=== PATIENT | female | born 1955 | race African-American/Black ===

== ENCOUNTER 2017-07-18 17:11 | Inpatient (IN) | END 2017-07-22 18:22 | disposition home or self-care (01) | DRG 291 ==

== ENCOUNTER 2018-06-13 03:42 | Inpatient (IN) | payer OTHER ==
[~2018-06-13] VITALS: Ht 167.6 cm; Wt 87.3 kg
[2018-06-13] VITALS (10 sets, daily range): BP systolic 123–155; BP diastolic 58–73; PULSE 49–70; RESP 18–20; Ht 167.6 cm; Wt 87.3 kg
[~2018-06-13 03:42] MED LIST: AMLO-147 PO; APIX2.5T PO; CLON-379 PO; DICL100G37 TOP; ERGO500014 PO; FURO-109 PO; GABA300C16 PO; HYDR-3671 PO; HYDR-3720 PO; ISOS60TA PO; LISI-471 PO; METO2.5T PO
[2018-06-13] MEDS ORDERED: ALBUTEROL/IPRATROPIUM (NEB) 3 ML AMP HHN PRN (06:30)
[2018-06-13] MEDS ORDERED: ONDANSETRON 4 MG INJ IV PRN (06:30)
[2018-06-13] MEDS ORDERED: BISACODYL (EC) 5 MG TAB PO PRN (06:30)
[2018-06-13] MEDS ORDERED: ACETAMINOPHEN 325 MG TAB PO PRN (06:30)
[2018-06-13] MEDS ORDERED: FUROSEMIDE 20 MG TAB PO SCH (07:00)
[2018-06-13] MEDS: LISINOPRIL 20 MG TAB PO SCH ×2 (09:11→20:03)
[2018-06-13] MEDS: GABAPENTIN 300 MG CAP PO SCH ×2 (09:11→20:02)
[2018-06-13] MEDS: AMLODIPINE 5 MG TAB PO SCH (09:12)
[2018-06-13] MEDS: APIXABAN 5 MG TABLET PO SCH ×2 (09:12→20:03)
[2018-06-13] MEDS: PANTOPRAZOLE (EC) 40 MG TAB PO SCH (09:17)
--- NOTE | 2018-06-13 13:06 | QN ---
Documentation Comment seen and examined ZOFIA GARDNER MD Jun 13, 2018 13:06
--- NOTE | 2018-06-13 13:37 | HP ---
DATE OF ADMISSION: 06/13/2018 REASON FOR ADMISSION: Transfer from [facility] due to shortness of breath and chest pain. HISTORY OF PRESENTING ILLNESS: This is a 62-year-old woman with a past medical history of CHF, hyper tension, hyperlipidemia, COPD, diastolic dysfunction grade 3, presented to [facility] on secondary to shortness of breath and chest pain for past 2 days. According to the patient, s he has not been taking any diuretics at home. The patient said that she had history of chronic right leg DVT and takes Eliquis at home. The patient has been having shortness of breath and cough for pa st 2 days. On and off, she gets intermittently bilateral lower extremity swelling. The patient went to [facility]. There, labs showed sodium of 142, potassium 3.5, chloride 103, bicarbonate 28, BUN of 13, creatinine is 1.02. LFTs within normal limit. White count was 6.4, hemoglobin 11.9 a nd platelet count 287. The patient had chest x-ray that showed pneumonia. The patient was started o n Rocephin and azithromycin, was given morphine and Zofran and was transferred to [facility] due to insurance reasons. PAST MEDICAL HISTORY: 1. COPD. 2. Hypertension. 3. Hyperlipidemia. 4. CHF. ALLERGIES: NONE. PAST SURGICAL HISTORY: Tubal ligation. MEDICATIONS TAKING AT HOME: 1. Amlodipine. 5 2. Aspirin 81. 3. Atorvastatin 20. 4. Clonidine. 5. Unsure about Lasix. 6. Gabapentin. 7. Hydralazine 25 b.i.d. 8. [place]on. 9. Lisinopril. 10. Prilosec. SOCIAL HISTORY: Denies any history of smoking, alcohol. Denies any recreational drug use. Currentl y lives at home with family. FAMILY HISTORY: Noncontributory. REVIEW OF SYSTEMS: CONSTITUTIONAL: The patient denied any fevers, chills, weight loss. HEENT: Some headache or blurry vision. HEART: The patient complained of chest pain. RESPIRATORY: Positive for shortness of breath. Complains of some cough. GASTROINTESTINAL: Denies any abdominal pain, any vomiting, diarrhea. GENITOURINARY: Denies any dysuria, polyuria, hematuria. NEUROLOGICAL: Denies any weakness. PHYSICAL EXAMINATION: VITAL SIGNS: Currently, blood pressure 134/86, the patient is afebrile, heart rate is 62, respiratio n is 20. GENERAL: The patient is awake, alert, oriented, does not appear to in any acute distress. HEENT: Pupils are equal, round, reactive to light. NECK: Supple. No JVD. HEART: Regular rate and rhythm. LUNGS: Decreased breath sounds bilaterally. ABDOMEN: Soft, nontender, nondistended, positive normoactive bowel sounds. EXTREMITIES: Some trace edema. NEUROLOGIC: Nonfocal. LABORATORY DATA: Sodium 144, potassium 4.4, chloride 102, bicarbonate 33, BUN of 13, creatinine 1.02 . White count 6.0, hemoglobin 11.5, platelet count 288. DIAGNOSTIC DATA: Chest x-ray there at an outside hospital shows pneumonia. ASSESSMENT AND PLAN: This is a 62-year-old female who presented with: 1. Shortness of breath likely secondary to pneumonia. We cannot rule out underlying congestive hear t failure. 2. Hypertension. 3. Hyperlipidemia. 4. History of deep venous thrombosis of the leg. 5. History of chronic obstructive pulmonary disease. 6. History of congestive heart failure. PLAN: At this period of time, the patient is admitted to [facility]. We will continue the patient on Lasi x as the patient was started on Zosyn. We will send for sputum cultures. We will repeat the chest x -ray. We will get serial troponins. Cardiology consultation. Rest of the treatment will depend upo n the patient's hospitalization course. Dictated By: ZOFIA KASPER/WALESKA Conf#: [id number] DID#: [id number] CC: DIMITRIOS BENSON MD;*[facility]*
[2018-06-13] MEDS: PIPER-TAZO 3.375 GM IV (PMX) 100 ML IVPB SCH ×2 (14:04→21:04)
[2018-06-13] MEDS: SOD CHLORIDE 0.9% 1,000 ML IV SCH (14:05)
--- NOTE | 2018-06-13 15:24 | CONS ---
Consultation Date/Type/Reason Admit Date/Time Jun 13, 2018 at 05:14 Type of Consult Cardiology Date/Time of Note DATE: 06/13/18 TIME: 15:24 Hx of Present Illness R/o PR - full note dictated # [id number] Past Medical History Home Meds Active Scripts Apixaban* (Eliquis*) 2.5 Mg Tablet, 2.5 MG PO BID for 30 Days, TAB Prov:SPRING BLACK 07/22/17 Hydralazine Hcl* (Hydralazine Hcl*) 25 Mg Tab, 25 MG PO Q8 for 30 Days, TAB Prov:SPRING BLACK 07/22/17 Reported Medications Furosemide* (Lasix*) 40 Mg Tablet, 40 MG PO DAILY, TAB 02/08/14 Lisinopril* (Lisinopril*) 20 Mg Tablet, 20 MG PO BID, TAB 02/08/14 Ergocalciferol* (Drisdol* (Vitamin D2)) 50,000 Unit Capsule, 54080 UNIT PO Q7D, CAP 02/08/14 Diclofenac Sodium* (Voltaren* Gel) 1% -100 Gm Gel, 1 APPLIC TOP TID PRN for PAIN, TUB 02/08/14 Hydrocodone Bit-Acetaminophen* ([place]*) 7.5-325 Tablet, 1 TAB PO Q12 PRN for PAIN, TAB 02/08/14 Hydralazine Hcl* (Hydralazine Hcl*) 25 Mg Tab, 25 MG PO BID, TAB 02/08/14 Clonidine Hcl* (Clonidine Hcl*) 0.1 Mg Tab, 0.1 MG PO BID, TAB 02/08/14 Isosorbide Mononitrate* (Isosorbide Mononitrate*) 60 Mg Tab.er.24h, 30 MG PO DAILY, TAB 02/08/14 Metolazone* (Metolazone*) 2.5 Mg Tablet, 2.5 MG PO EVERY THIRD DAY PRN for NEEDED, TAB 02/08/14 Amlodipine Besylate* (Amlodipine Besylate*) 10 Mg Tablet, 10 MG PO DAILY, TAB 02/08/14 Gabapentin* (Gabapentin*) 300 Mg Capsule, 300 MG PO BID, CAP 02/08/14 Medications Current Medications Amlodipine Besylate (Norvasc) 5 mg DAILY PO Last administered on 06/13/18 09:12; Admin Dose 5 MG; Start 06/13/18 at 09:00 Apixaban (Eliquis) 2.5 mg BID PO Last administered on 06/13/18 09:12; Admin Dose 2.5 MG; Start 06/13/18 at 09:00 Clonidine (Catapres) 0.2 mg DAILY PO Last administered on 06/13/18 09:11; Admin Dose 0.2 MG; Start 06/13/18 at 09:00 Gabapentin (Neurontin) 300 mg BID PO Last administered on 06/13/18 09:11; Admin Dose 300 MG; Start 06/13/18 at 09:00 Hydralazine HCl (Apresoline) 25 mg BID PO Last administered on 06/13/18 09:11; Admin Dose 25 MG; Start 06/13/18 at 09:00 Acetaminophen/ Hydrocodone Bitart ([place] (10/325)) 1 tab Q6H PRN PO MODERATE PAIN LEVEL 4-6; Start 06/13/18 at 06:30 Lisinopril (Zestril) 20 mg BID PO Last administered on 06/13/18 09:11; Admin Dose 20 MG; Start 06/13/18 at 09:00 Pantoprazole (Protonix Tab) 40 mg DAILY@06 PO Last administered on 06/13/18 09:17; Admin Dose 40 MG; Start 06/13/18 at 08:00 Piperacillin Sod/ Tazobactam Sod 100 ml @ 200 mls/hr Q8 IVPB Last administered on 06/13/18 14:04; Admin Dose 200 MLS/HR; Start 06/13/18 at 14:00 Bisacodyl (Dulcolax) 10 mg BID PRN PO CONSTIPATION; Start 06/13/18 at 06:30 Acetaminophen (Tylenol Tab) 650 mg Q6H PRN PO MILD PAIN(1-3)OR ELEVATED TEMP; Start 06/13/18 at 06:30 Ondansetron HCl (Zofran Inj) 4 mg Q6H PRN IV NAUSEA AND/OR VOMITING; Start 06/13/18 at 06:30 Sodium Chloride 1,000 ml @ 20 mls/hr Q24H IV Last administered on 06/13/18 14:05; Admin Dose 20 MLS/HR; Start 06/13/18 at 06:30 Albuterol/ Ipratropium (Duoneb) 3 ml Q6H RESP THERAPY PRN HHN SHORTNESS OF BREATH; Start 06/13/18 at 06:30 Furosemide (Lasix) 20 mg DAILY IV ; Start 06/14/18 at 09:00 Allergies: Coded Allergies: No Known Allergy (Unverified , 07/21/17) Social History Smoking Status: Never smoker Exam/Review of Systems Vital Signs Vitals Vital Signs Date Temp Pulse Resp B/P (MAP) Pulse Ox O2 O2 Flow FiO2 Time Delivery Rate 06/13/18 70 12:01 06/13/18 97.8 20 134/63 94 Nasal 11:26 (86) Cannula 06/13/18 10.0 06:59 Labs Result Diagram: 06/13/18 1005 06/13/18 1005 Results 24hrs Laboratory Tests Test 06/13/18 10:05 White Blood Count 6.0 Red Blood Count 4.76 # Hemoglobin 11.5 L Hematocrit 39.3 Mean Corpuscular Volume 82.6 Mean Corpuscular Hemoglobin 24.2 #L Mean Corpuscular Hemoglobin Concent 29.3 L Red Cell Distribution Width 17.0 #H Platelet Count 288 Mean Platelet Volume 9.7 Immature Granulocytes % 0.800 H Neutrophils % 69.5 Lymphocytes % 16.1 Monocytes % 11.5 H Eosinophils % 1.8 Basophils % 0.3 Nucleated Red Blood Cells % 1.3 H Immature Granulocytes # 0.050 H Neutrophils # 4.2 Lymphocytes # 1.0 Monocytes # 0.7 Eosinophils # 0.1 Basophils # 0.0 Nucleated Red Blood Cells # 0.1 H Sodium Level 144 Potassium Level 4.4 Chloride Level 102 Carbon Dioxide Level 33 H Anion Gap 9 Blood Urea Nitrogen 13 Creatinine 1.02 H Est Glomerular Filtrat Rate mL/min > 60 Glucose Level 111 Calcium Level 8.6 Total Bilirubin 0.3 Direct Bilirubin 0.00 Indirect Bilirubin 0.3 Aspartate Amino Transf (AST/SGOT) 39 Alanine Aminotransferase (ALT/SGPT) 19 Alkaline Phosphatase 97 Total Protein 6.9 Albumin 3.5 Globulin 3.40 H Albumin/Globulin Ratio 1.02 Medications Medications Current Medications Amlodipine Besylate (Norvasc) 5 mg DAILY PO Last administered on 06/13/18at 09:12; Admin Dose 5 MG; Start 06/13/18 at 09:00 Apixaban (Eliquis) 2.5 mg BID PO Last administered on 06/13/18 09:12; Admin Dose 2.5 MG; Start 06/13/18 at 09:00 Clonidine (Catapres) 0.2 mg DAILY PO Last administered on 06/13/18 09:11; Admin Dose 0.2 MG; Start 06/13/18 at 09:00 Gabapentin (Neurontin) 300 mg BID PO Last administered on 06/13/18 09:11; Admin Dose 300 MG; Start 06/13/18 at 09:00 Hydralazine HCl (Apresoline) 25 mg BID PO Last administered on 06/13/18 09:11; Admin Dose 25 MG; Start 06/13/18 at 09:00 Acetaminophen/ Hydrocodone Bitart ([place] (10/325)) 1 tab Q6H PRN PO MODERATE PAIN LEVEL 4-6; Start 06/13/18 at 06:30 Lisinopril (Zestril) 20 mg BID PO Last administered on 06/13/18 09:11; Admin Dose 20 MG; Start 06/13/18 at 09:00 Pantoprazole (Protonix Tab) 40 mg DAILY@06 PO Last administered on 06/13/18 09:17; Admin Dose 40 MG; Start 06/13/18 at 08:00 Piperacillin Sod/ Tazobactam Sod 100 ml @ 200 mls/hr Q8 IVPB Last administered on 06/13/18 14:04; Admin Dose 200 MLS/HR; Start 06/13/18 at 14:00 Bisacodyl (Dulcolax) 10 mg BID PRN PO CONSTIPATION; Start 06/13/18 at 06:30 Acetaminophen (Tylenol Tab) 650 mg Q6H PRN PO MILD PAIN(1-3)OR ELEVATED TEMP; Start 06/13/18 at 06:30 Ondansetron HCl (Zofran Inj) 4 mg Q6H PRN IV NAUSEA AND/OR VOMITING; Start 06/13/18 at 06:30 Sodium Chloride 1,000 ml @ 20 mls/hr Q24H IV Last administered on 06/13/18 14:05; Admin Dose 20 MLS/HR; Start 06/13/18 at 06:30 Albuterol/ Ipratropium (Duoneb) 3 ml Q6H RESP THERAPY PRN HHN SHORTNESS OF BREATH; Start 06/13/18 at 06:30 Furosemide (Lasix) 20 mg DAILY IV ; Start 06/14/18 at 09:00 CECILIA VAZ MD Jun 13, 2018 15:24
--- NOTE | 2018-06-13 16:27 | CONS ---
DATE OF ADMISSION: 06/13/2018 DATE OF CONSULTATION: 06/13/2018 TYPE OF CONSULTATION: Cardiology. REFERRING PHYSICIAN: Lynsey Pretty MD REASON FOR EVALUATION: Precordial chest pain. HISTORY OF PRESENT ILLNESS: Ms. Aquino is a 62-year-old -[place]ese woman known from prior ad missions, history of hypertension, dyslipidemia, history of COPD, history of diastolic dysfunction, w ho comes to the hospital now for evaluation of precordial chest pain and shortness of breath. Accord ing to Dr. Pretty's notes, she has not been taking diuretics at home after her recent hospitalization . The patient has a history of DVT and takes Eliquis at home. It is unclear whether she was taking the medication. The patient is hemodynamically stable now, although still somewhat somnolent. There might be some psychiatric component to her illness. The patient does appear to be with acute chest pain. At this point, she is minimally fluid overloaded. Her laboratory data showed no evidence of i schemia with troponin being negative at 0.029. I think for now, conservative therapy is expected. T he patient however will have V/Q scan. We will continue to monitor the patient. As we are going to out PE, 2D echo to follow and we will optimize fluid status. PAST MEDICAL HISTORY: Hypertension, dyslipidemia, history of CHF with preserved ejection fraction, h istory of medical noncompliance, history of DVT on anticoagulation. ALLERGIES: NO KNOWN DRUG ALLERGIES. MEDICATIONS: Currently include: 1. Lasix 20 mg p.o. once a day. 2. Zosyn. 3. Eliquis 2.5 mg p.o. b.i.d. 4. Clonidine 0.2 mg p.o. b.i.d. 5. Hydralazine. 6. Lisinopril 20 mg p.o. b.i.d. 7. Pantoprazole. 8. Hydrochlorothiazide. 9. Bisacodyl. 10. Sodium chloride. REVIEW OF SYSTEMS: CONSTITUTIONAL: No fevers, no chills, no recent weight change. HEENT: No changes in vision or hearing. CARDIAC: Chest pain reported now. RESPIRATORY: Short of breath, chronic. GASTROINTESTINAL: No nausea, vomiting. GENITOURINARY: No dysuria or hematuria. NEUROLOGIC: No focal deficits. PSYCHIATRIC: No history of psychiatric illness. PHYSICAL EXAMINATION: VITAL SIGNS: Temperature is 97.8, heart rate , blood pressure is 134/63. GENERAL: She is a well-nourished -Congolese woman in no acute distress, not really wanting to answer my question. HEENT: Head is normocephalic. Eyes are anicteric. NECK: Supple. JVD is 6 cm. No lymphadenopathy. No thyromegaly. HEART: Regular, soft, I/ systolic murmur. PMI is minimally displaced. There is no S3. LUNGS: Coarse to base. ABDOMEN: Nondistended. Bowel sounds are present. There is no hepatosplenomegaly. GENITOURINARY: Intact. EXTREMITIES: Show trace edema. DIAGNOSTIC DATA: ECG shows sinus rhythm with nonspecific ST changes. LABORATORY DATA: Sodium 144, potassium 4.0. Her BUN is 15, creatinine 0.1. White blood cell count is 6.8, hemoglobin 11.5. ASSESSMENT AND PLAN: 1. Chest pain. The patient did not rule in for ischemia. Troponins are negative. Continue to uma tor now. 2. History of deep venous thrombosis. The patient has history of deep venous thrombosis. Now, resu me on Eliquis and V/Q scan to rule out pulmonary embolism now. We will follow up with a 2D echo. 3. Hypertension. Blood pressure is modestly well controlled. Continue to adjust medications as nee ded. 4. Possible bronchitis. The patient is on antibiotics. 5. Secondary hypercoagulable state. Eliquis with renally adjusted dose. I would like to thank Dr. Pretty for referring this patient for my evaluation. Dictated By: CECILIA VAZ MD ML/NTS Conf#: [id number] DID#: [id number] CC: DIMITRIOS BENSON MD;*EndCC*
[2018-06-13] MEDS: HYDROCODONE/APAP (10/325) TAB PO PRN (20:07)
[2018-06-14] VITALS (11 sets, daily range): BP systolic 126–163; BP diastolic 60–73; PULSE 44–68; RESP 18–20
[2018-06-14] MEDS: HYDROCODONE/APAP (10/325) TAB PO PRN ×3 (02:35→23:03)
[2018-06-14] MEDS: PIPER-TAZO 3.375 GM IV (PMX) 100 ML IVPB SCH ×3 (05:06→22:05)
[2018-06-14] MEDS: PANTOPRAZOLE (EC) 40 MG TAB PO SCH (05:06)
[2018-06-14] MEDS: SOD CHLORIDE 0.9% 1,000 ML IV SCH (05:40)
[2018-06-14] MEDS: GABAPENTIN 300 MG CAP PO SCH ×2 (08:32→20:14)
[2018-06-14] MEDS: LISINOPRIL 20 MG TAB PO SCH ×2 (08:32→20:14)
[2018-06-14] MEDS: AMLODIPINE 5 MG TAB PO SCH (08:33)
[2018-06-14] MEDS: APIXABAN 5 MG TABLET PO SCH ×2 (08:33→20:14)
[2018-06-14] MEDS: FUROSEMIDE 20 MG INJ IV SCH (08:33)
[2018-06-14] MEDS ORDERED: ACETAZOLAMIDE 500 MG INJ IV ONE (10:00)
[2018-06-14] MEDS ORDERED: FUROSEMIDE 40 MG INJ IV ONE (10:00)
--- NOTE | 2018-06-14 10:44 | CONS ---
Assessment/Plan Assessment/Plan Assessment/Plan (Daily) Chest x-ray showing cardiomegaly with a background of interstitial changes with right lower lobe acute infiltrate, multiple prior chest x-rays were reviewed these are new findings in the right lower lobe. ABG showing hypoxemic and hypercapnic respiratory failure which is mostly compensated. Assessment recommendations: 1. patient admitted with what appears to be right lower lobe community-acquired pneumonia with underlying cardiomyopathy. 2. 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 3. History of hypertension. 4. Prior history of right lower extremity DVT, maintained on chronic anticoagulation. 5. Likely chronic type II respiratory failure. Continue current supportive care. Continue BiPAP as needed. Add Zithromax intravenously. Obtain follow-up chest x-ray in 48 hours. Consultation Date/Type/Reason Admit Date/Time Jun 13, 2018 at 05:14 Date of Consultation: Jun 14, 2018 Type of Consult Pulmonary Patient is a pleasant 62-year-old lady who came into the hospital with a 3-day history of coughing, wheezing, shortness of breath. According to her she always has dyspnea on minimal exertion. Patient also had chest pain, was transferred to [facility] and then transferred to [facility] because of insurance reasons. Patient feeling somewhat better since admission, denies any high fever, chills, body aches or myalgias. Patient is maintained on 100% n onrebreather mask, patient however did not appear to be in any distress whatsoever. Past medical history; 1. Cardiomyopathy. Patient is on home oxygen at 3 L/min most of the day. 2. Hypertension 3. Right lower extremity DVT. 4. Likely chronic type II respiratory failure. Medications; reviewed. Allergies; none. Social history; quit smoking when she was in her 30s. No stable alcohol or drug abuse. Family history; patient is , has 4 children. 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 Review of systems; denies any headache, sinus symptoms, seizures. Any visual changes. Denies any sore throat, dysphagia. Any chest pain or angina. Complains of cough with clear- yellow sputum production. Denies any abdominal pain, nausea vomiting, any edema. Denies any melena or hematochezia. Any weight change. Complains of very minimal orthopnea. Denies any hemoptysis. General exam; elderly female, awake and alert. Currently in no distress. Date/Time of Note DATE: 06/14/18 TIME: 10:37 Past Medical History Home Meds Active Scripts Apixaban* (Eliquis*) 2.5 Mg Tablet, 2.5 MG PO BID for 30 Days, TAB Prov:SPRING BLACK 07/22/17 Hydralazine Hcl* (Hydralazine Hcl*) 25 Mg Tab, 25 MG PO Q8 for 30 Days, TAB Prov:SPRING BLACK 07/22/17 Reported Medications Furosemide* (Lasix*) 40 Mg Tablet, 40 MG PO DAILY, TAB 02/08/14 Lisinopril* (Lisinopril*) 20 Mg Tablet, 20 MG PO BID, TAB 02/08/14 Ergocalciferol* (Drisdol* (Vitamin D2)) 50,000 Unit Capsule, 76130 UNIT PO Q7D, CAP 02/08/14 Diclofenac Sodium* (Voltaren* Gel) 1% -100 Gm Gel, 1 APPLIC TOP TID PRN for PAIN, TUB 02/08/14 Hydrocodone Bit-Acetaminophen* ([place]*) 7.5-325 Tablet, 1 TAB PO Q12 PRN for PAIN, TAB 02/08/14 Hydralazine Hcl* (Hydralazine Hcl*) 25 Mg Tab, 25 MG PO BID, TAB 02/08/14 Clonidine Hcl* (Clonidine Hcl*) 0.1 Mg Tab, 0.1 MG PO BID, TAB 02/08/14 Isosorbide Mononitrate* (Isosorbide Mononitrate*) 60 Mg Tab.er.24h, 30 MG PO DAILY, TAB 02/08/14 Metolazone* (Metolazone*) 2.5 Mg Tablet, 2.5 MG PO EVERY THIRD DAY PRN for NEEDED, TAB 02/08/14 Amlodipine Besylate* (Amlodipine Besylate*) 10 Mg Tablet, 10 MG PO DAILY, TAB 02/08/14 Gabapentin* (Gabapentin*) 300 Mg Capsule, 300 MG PO BID, CAP 02/08/14 Medications Current Medications Amlodipine Besylate (Norvasc) 5 mg DAILY PO Last administered on 06/14/18at 08:3 3; Admin Dose 5 MG; Start 06/13/18 at 09:00 Apixaban (Eliquis) 2.5 mg BID PO Last administered on 06/14/18 08:33; Admin Dose 2.5 MG; Start 06/13/18 at 09:00 Clonidine (Catapres) 0.2 mg DAILY PO Last administered on 06/14/18 08:31; Admin Dose 0.2 MG; Start 06/13/18 at 09:00 Gabapentin (Neurontin) 300 mg BID PO Last administered on 06/14/18 08:32; Admin Dose 300 MG; Start 06/13/18 at 09:00 Hydralazine HCl (Apresoline) 25 mg BID PO Last administered on 06/14/18 08:32; Admin Dose 25 MG; Start 06/13/18 at 09:00 Acetaminophen/ Hydrocodone Bitart ([place] (10/325)) 1 tab Q6H PRN PO MODERATE PA IN LEVEL 4-6 Last administered on 06/14/18 02:35; Admin Dose 1 TAB; Start 06/13/18 at 06:30 Lisinopril (Zestril) 20 mg BID PO Last administered on 06/14/18 08:32; Admin Dose 20 MG; Start 06/13/18 at 09:00 Pantoprazole (Protonix Tab) 40 mg DAILY@06 PO Last administered on 06/14/18 05:06; Admin Dose 40 MG; Start 06/13/18 at 08:00 Piperacillin Sod/ Tazobactam Sod 100 ml @ 200 mls/hr Q8 IVPB Last administered on 06/14/18 05:06; Admin Dose 200 MLS/HR; Start 06/13/18 at 14:00 Bisacodyl (Dulcolax) 10 mg BID PRN PO CONSTIPATION; Start 06/13/18 at 06:30 Acetaminophen (Tylenol Tab) 650 mg Q6H PRN PO MILD PAIN(1-3)OR ELEVATED TEMP; Start 06/13/18 at 06:30 Ondansetron HCl (Zofran Inj) 4 mg Q6H PRN IV NAUSEA AND/OR VOMITING; Start 06/13/18 at 06:30 Sodium Chloride 1,000 ml @ 20 mls/hr Q24H IV Last administered on 06/13/18at 14:05; Admin Dose 20 MLS/HR; Start 06/13/18 at 06:30 Albuterol/ Ipratropium (Duoneb) 3 ml Q6H RESP THERAPY PRN HHN SHORTNESS OF BREATH; Start 06/13/18 at 06:30 Furosemide (Lasix) 20 mg DAILY IV Last administered on 06/14/18at 08:33; Admin Dose 20 MG; Start 06/14/18 at 09:00 Allergies: Coded Allergies: No Known Allergy (Unverified , 07/21/17) Social History Smoking Status: Never smoker Exam/Review of Systems Exam Vitals Vital Signs Date Temp Pulse Resp B/P (MAP) Pulse Ox O2 O2 Flow FiO2 Time Delivery Rate 06/14/18 56 08:01 06/14/18 Non 10.0 07:35 Rebreather 06/14/18 137/63 05:46 (87) 06/14/18 97 05:09 06/14/18 98.3 19 04:00 06/13/18 44 16:25 Intake and Output 06/13/18 06/13/18 06/14/18 1515:00 23:00 07:00 IntakeIntake Total 100 ml 820 ml 1040 ml BalanceBalance 100 ml 820 ml 1040 ml Exam H EENT exam; supple neck, positive JVD. No lymphadenopathy. Midline trachea. No thyromegaly. Patient has multiple carious teeth. No neck masses. Chest exam; diminished breath sounds bilaterally. S1-S2 audible, no murmurs. Regular rhythm. Abdomen exam; soft, no organomegaly. Nontender. Bowel sounds audible. Extremity exam; no peripheral edema. Or clubbing. PHARMACY TECH exam; no focal deficit. Results Result Diagram: 06/13/18 1005 06/14/18 0629 Results 24hrs Laboratory Tests Test 06/14/18 06:29 06/14/18 09:03 Sodium Level 144 Potassium Level 4.8 Chloride Level 102 Carbon Dioxide Level 32 H Anion Gap 10 Blood Urea Nitrogen 17 Creatinine 1.19 H Est Glomerular Filtrat Rate mL/min 55 L Glucose Level 103 Calcium Level 8.5 Blood Gas Specimen Source Blood arterial Arterial Blood Date Drawn 06/14/2018 9:42:38 AM Arterial Blood pH (Temp corrected) 7.317 L Arterial Blood pCO2 (Temp correct) 71.3 H Arterial Blood pO2 (Temp corrected) 61.9 L Arterial Blood HCO3 35.7 H Arterial Blood Base Excess 7.2 H Arterial Blood Oxygen Saturation 89.6 L Jose Test ACCEPTAB Arterial Blood Gas Puncture Site Right Radial Arterial Blood Carboxyhemoglobin 1.0 Arterial Blood Methemoglobin 0.2 Blood Gas A-a O2 Differential 579.8 H Oxyhemoglobin Percent 88.5 L Blood Gas Temperature 37.0 Blood Gas Modality MASK - NRB FiO2 100.0 Blood Gas Critical Value Read Back ALEXANDER RN Blood Gas Notified Whom TM Blood Gas Notified Time 06/14/2018 9:52:08 AM Medications Medication Current Medications Amlodipine Besylate (Norvasc) 5 mg DAILY PO Last administered on 06/14/18 08:33; Admin Dose 5 MG; Start 06/13/18 at 09:00 Apixaban (Eliquis) 2.5 mg BID PO Last administered on 06/14/18 08:33; Admin Dose 2.5 MG; Start 06/13/18 at 09:00 Clonidine (Catapres) 0.2 mg DAILY PO Last administered on 06/14/18 08:31; Admin Dose 0.2 MG; Start 06/13/18 at 09:00 Gabapentin (Neurontin) 300 mg BID PO Last administered on 06/14/18 08:32; Admin Dose 300 MG; Start 06/13/18 at 09:00 Hydralazine HCl (Apresoline) 25 mg BID PO Last administered on 06/14/18 08:32; Admin Dose 25 MG; Start 06/13/18 at 09:00 Acetaminophen/ Hydrocodone Bitart ([place] (10/325)) 1 tab Q6H PRN PO MODERATE PAIN LEVEL 4-6 Last administered on 06/14/18 02:35; Admin Dose 1 TAB; Start 06/13/18 at 06:30 Lisinopril (Zestril) 20 mg BID PO Last administered on 06/14/18 08:32; Admin Dose 20 MG; Start 06/13/18 at 09:00 Pantoprazole (Protonix Tab) 40 mg DAILY@06 PO Last administered on 06/14/18 05:06; Admin Dose 40 MG; Start 06/13/18 at 08:00 Piperacillin Sod/ Tazobactam Sod 100 ml @ 200 mls/hr Q8 IVPB Last administered on 06/14/18 05:06; Admin Dose 200 MLS/HR; Start 06/13/18 at 14:00 Bisacodyl (Dulcolax) 10 mg BID PRN PO CONSTIPATION; Start 06/13/18 at 06:30 Acetaminophen (Tylenol Tab) 650 mg Q6H PRN PO MILD PAIN(1-3)OR ELEVATED TEMP; Start 06/13/18 at 06:30 Ondansetron HCl (Zofran Inj) 4 mg Q6H PRN IV NAUSEA AND/OR VOMITING; Start 06/13/18 at 06:30 Sodium Chloride 1,000 ml @ 20 mls/hr Q24H IV Last administered on 06/13/18at 14:05; Admin Dose 20 MLS/HR; Start 06/13/18 at 06:30 Albuterol/ Ipratropium (Duoneb) 3 ml Q6H RESP THERAPY PRN HHN SHORTNESS OF BREATH; Start 06/13/18 at 06:30 Furosemide (Lasix) 20 mg DAILY IV Last administered on 06/14/18at 08:33; Admin Dose 20 MG; Start 06/14/18 at 09:00 JANIYA ARRINGTON Jun 14, 2018 10:44
[2018-06-14] MEDS ORDERED: ALBUTEROL/IPRATROPIUM (NEB) 3 ML AMP HHN PRN (11:00)
--- NOTE | 2018-06-14 11:23 | PN ---
Date/Time of Note Date/Time of Note DATE: 06/14/18 TIME: 11:16 Assessment/Plan VTE Prophylaxis Risk score (from [facility])>0 risk: 5 SCD applied (from [facility] [place]): No SCD contraindicated: low risk/ambulating Pharmacological prophylaxis: NA/contraindicated Pharm contraindication: low risk/ambulating Lines/Catheters IV [facility]ter Type (from [facility]): Peripheral IV Urinary Cath still in place: No Assessment/Plan Hospital Course 62-year-old female who presented with: 1. Shortness of breath likely secondary to right lower lobe pneumonia pneumonia. Underlying underlying congestive heart failure. 2. Hypertension. 3. Hyperlipidemia. 4. History of deep venous thrombosis of the leg. 5. History of chronic obstructive pulmonary disease.on Chronic home oxygen 4 L 6. History of congestive heart failure. 7 chronic c respiratory failure with hypoxia and hypercarbia plan -cw with nonrebreather mask for now -IV Lasix/1 dose of Diamox -cw with lisinopril/amlodipine/hydralazine - cw with Eliquis -cw with Zosyn/added azithromycin - ABG reviewed -pul consult - cw nebs - Pul/cardiac recs Result Diagram: 06/13/18 1005 06/14/18 0629 Results 24hrs Laboratory Tests Test 06/14/18 06:29 06/14/18 09:03 Sodium Level 144 Potassium Level 4.8 Chloride Level 102 Carbon Dioxide Level 32 H Anion Gap 10 Blood Urea Nitrogen 17 Creatinine 1.19 H Est Glomerular Filtrat Rate mL/min 55 L Glucose Level 103 Calcium Level 8.5 Blood Gas Specimen Source Blood arterial Arterial Blood Date Drawn 06/14/2018 9:42:38 AM Arterial Blood pH (Temp corrected) 7.317 L Arterial Blood pCO2 (Temp correct) 71.3 H Arterial Blood pO2 (Temp corrected) 61.9 L Arterial Blood HCO3 35.7 H Arterial Blood Base Excess 7.2 H Arterial Blood Oxygen Saturation 89.6 L Jose Test ACCEPTAB Arterial Blood Gas Puncture Site Right Radial Arterial Blood Carboxyhemoglobin 1.0 Arterial Blood Methemoglobin 0.2 Blood Gas A-a O2 Differential 579.8 H Oxyhemoglobin Percent 88.5 L Blood Gas Temperature 37.0 Blood Gas Modality MASK - NRB FiO2 100.0 Blood Gas Critical Value Read Back ALEXANDER CRUZ Blood Gas Notified Whom TM Blood Gas Notified Time 06/14/2018 9:52:08 AM Subjective 24 Hr Interval Summary Free Text/Dictation Patient was short of breath this morning placed on nonrebreather X-ray shows right lower lobe pneumonia/pulmonary edema Exam/Review of Systems Exam Vitals Vital Signs Date Temp Pulse Resp B/P (MAP) Pulse Ox O2 O2 Flow FiO2 Time Delivery Rate 06/14/18 56 08:01 06/14/18 Non 10.0 07:35 Rebreather 06/14/18 137/63 05:46 (87) 06/14/18 97 05:09 06/14/18 98.3 19 04:00 06/13/18 44 16:25 Intake and Output 06/13/18 06/13/18 06/14/18 1515:00 23:00 07:00 IntakeIntake Total 100 ml 820 ml 1040 ml BalanceBalance 100 ml 820 ml 1040 ml Exam GENERAL: The patient is awake, alert, oriented, does not appear to in any acute distress. HEENT: Pupils are equal, round, reactive to light. NECK: Supple. No JVD. HEART: Regular rate and rhythm. LUNGS: Crackles at the right base ABDOMEN: Soft, nontender, nondistended, positive normoactive bowel sounds. EXTREMITIES: Some trace edema. NEUROLOGIC: Nonfocal. Results Results 24hrs Laboratory Tests Test 06/14/18 06:29 06/14/18 09:03 Sodium Level 144 Potassium Level 4.8 Chloride Level 102 Carbon Dioxide Level 32 H Anion Gap 10 Blood Urea Nitrogen 17 Creatinine 1.19 H Est Glomerular Filtrat Rate mL/min 55 L Glucose Level 103 Calcium Level 8.5 Blood Gas Specimen Source Blood arterial Arterial Blood Date Drawn 06/14/2018 9:42:38 AM Arterial Blood pH (Temp corrected) 7.317 L Arterial Blood pCO2 (Temp correct) 71.3 H Arterial Blood pO2 (Temp corrected) 61.9 L Arterial Blood HCO3 35.7 H Arterial Blood Base Excess 7.2 H Arterial Blood Oxygen Saturation 89.6 L Jose Test ACCEPTAB Arterial Blood Gas Puncture Site Right Radial Arterial Blood Carboxyhemoglobin 1.0 Arterial Blood Methemoglobin 0.2 Blood Gas A-a O2 Differential 579.8 H Oxyhemoglobin Percent 88.5 L Blood Gas Temperature 37.0 Blood Gas Modality MASK - NRB FiO2 100.0 Blood Gas Critical Value Read Back ALEXANDER CRUZ Blood Gas Notified Whom TM Blood Gas Notified Time 06/14/2018 9:52:08 AM Medications Medication Current Medications Amlodipine Besylate (Norvasc) 5 mg DAILY PO Last administered on 06/14/18 08:33; Admin Dose 5 MG; Start 06/13/18 at 09:00 Apixaban (Eliquis) 2.5 mg BID PO Last administered on 06/14/18 08:33; Admin Dose 2.5 MG; Start 06/13/18 at 09:00 Clonidine (Catapres) 0.2 mg DAILY PO Last administered on 06/14/18 08:31; Admin Dose 0.2 MG; Start 06/13/18 at 09:00 Gabapentin (Neurontin) 300 mg BID PO Last administered on 06/14/18 08:32; Admin Dose 300 MG; Start 06/13/18 at 09:00 Hydralazine HCl (Apresoline) 25 mg BID PO Last administered on 06/14/18 08:32; Admin Dose 25 MG; Start 06/13/18 at 09:00 Acetaminophen/ Hydrocodone Bitart ([place] (10/325)) 1 tab Q6H PRN PO MODERATE PAIN LEVEL 4-6 Last administered on 06/14/18 02:35; Admin Dose 1 TAB; Start 06/13/18 at 06:30 Lisinopril (Zestril) 20 mg BID PO Last administered on 06/14/18 08:32; Admin Dose 20 MG; Start 06/13/18 at 09:00 Pantoprazole (Protonix Tab) 40 mg DAILY@06 PO Last administered on 06/14/18 05:06; Admin Dose 40 MG; Start 06/13/18 at 08:00 Piperacillin Sod/ Tazobactam Sod 100 ml @ 200 mls/hr Q8 IVPB Last administered on 06/14/18 05:06; Admin Dose 200 MLS/HR; Start 06/13/18 at 14:00 Bisacodyl (Dulcolax) 10 mg BID PRN PO CONSTIPATION; Start 06/13/18 at 06:30 Acetaminophen (Tylenol Tab) 650 mg Q6H PRN PO MILD PAIN(1-3)OR ELEVATED TEMP; Start 06/13/18 at 06:30 Ondansetron HCl (Zofran Inj) 4 mg Q6H PRN IV NAUSEA AND/OR VOMITING; Start 06/13/18 at 06:30 Sodium Chloride 1,000 ml @ 20 mls/hr Q24H IV Last administered on 06/13/18at 14:05; Admin Dose 20 MLS/HR; Start 06/13/18 at 06:30 Albuterol/ Ipratropium (Duoneb) 3 ml Q6H RESP THERAPY PRN HHN SHORTNESS OF BREATH; Start 06/13/18 at 06:30 Furosemide (Lasix) 20 mg DAILY IV Last administered on 06/14/18at 08:33; Admin Dose 20 MG; Start 06/14/18 at 09:00 Azithromycin 500 mg/Sodium Chloride 250 ml @ 250 mls/hr Q24H IVPB ; Start 06/14 at 13:00 ZOFIA GARDNER MD Jun 14, 2018 11:23
[2018-06-14] MEDS: AZITHROMYCIN 500 MG in SOD CHLORIDE 0.9% 250 ML IVPB SCH (12:54)
--- NOTE | 2018-06-14 17:38 | CONS ---
Assessment/Plan Assessment/Plan Hospital Course (Demo Recall) IMP: 1.chest pain 2.abnl ecg 3.H/O PE 4.HTN 5.CHF-by cxr ? systolic vs diastolic acute on chronic 6. Renal insuff Recc: -Tele -serial ecg's -Continue norvasc/hydralazine/zestril -complete anel -check echo -continue eliquis -consider lexiscan stress test -Continue gentle lasix diuresis and follow volume status closely Consultation Date/Type/Reason Admit Date/Time Jun 13, 2018 at 05:14 Initial Consult Date 06/14/18 Type of Consult Cardiology Reason for Consultation chest pain Requesting Provider: ZOFIA GARDNER MD Date/Time of Note DATE: 06/14/18 TIME: 17:33 Exam/Review of Systems Vital Signs Vitals Vital Signs Date Temp Pulse Resp B/P (MAP) Pulse Ox O2 O2 Flow FiO2 Time Delivery Rate 06/14/18 44 16:01 06/14/18 98.2 18 131/60 94 Nasal 15:17 (83) Cannula 06/14/18 15.0 100 08:41 Intake and Output 06/13/18 06/13/18 06/14/18 1515:00 23:00 07:00 IntakeIntake Total 100 ml 820 ml 1040 ml BalanceBalance 100 ml 820 ml 1040 ml Exam Exam Review of Systems: CONSTITUTIONAL: No fevers, chills. PULMONARY: No sob CARDIOVASCULAR: No chest pain/palpitations GASTROINTESTINAL: No nausea/vomiting. GENITOURINARY: No hematuria/dysuria. MUSCULOSKELETAL: No myagias/arthalgias. PSYCHIATRIC: The patient denies depression. NEUROLOGIC: No weakness Constitutional: alert Psych: no complaints Head: normocephalic ENMT: mucosa pink and moist Neck: supple, jvd (9 cm water) Respiratory: diminished breath sounds Cardiovascular: regular rate and rhythm Gastrointestinal: soft, non-tender Musculoskeletal: muscle tone (normal) Extremities: edema (none) Neurological: other (No focal deficits) Labs Result Diagram: 06/13/18 1005 06/14/18 0629 Results 24hrs Laboratory Tests Test 06/14/18 06:29 06/14/18 09:03 Sodium Level 144 Potassium Level 4.8 Chloride Level 102 Carbon Dioxide Level 32 H Anion Gap 10 Blood Urea Nitrogen 17 Creatinine 1.19 H Est Glomerular Filtrat Rate mL/min 55 L Glucose Level 103 Calcium Level 8.5 Blood Gas Specimen Source Blood arterial Arterial Blood Date Drawn 06/14/2018 9:42:38 AM Arterial Blood pH (Temp corrected) 7.317 L Arterial Blood pCO2 (Temp correct) 71.3 H Arterial Blood pO2 (Temp corrected) 61.9 L Arterial Blood HCO3 35.7 H Arterial Blood Base Excess 7.2 H Arterial Blood Oxygen Saturation 89.6 L Jose Test ACCEPTAB Arterial Blood Gas Puncture Site Right Radial Arterial Blood Carboxyhemoglobin 1.0 Arterial Blood Methemoglobin 0.2 Blood Gas A-a O2 Differential 579.8 H Oxyhemoglobin Percent 88.5 L Blood Gas Temperature 37.0 Blood Gas Modality MASK - NRB FiO2 100.0 Blood Gas Critical Value Read Back ALEXANDER CRUZ Blood Gas Notified Whom TM Blood Gas Notified Time 06/14/2018 9:52:08 AM Medications Medications Current Medications Amlodipine Besylate (Norvasc) 5 mg DAILY PO Last administered on 06/14/18 08:33; Admin Dose 5 MG; Start 06/13/18 at 09:00 Apixaban (Eliquis) 2.5 mg BID PO Last administered on 06/14/18 08:33; Admin Dose 2.5 MG; Start 06/13/18 at 09:00 Clonidine (Catapres) 0.2 mg DAILY PO Last administered on 06/14/18 08:31; Admin Dose 0.2 MG; Start 06/13/18 at 09:00 Gabapentin (Neurontin) 300 mg BID PO Last administered on 06/14/18 08:32; Admin Dose 300 MG; Start 06/13/18 at 09:00 Hydralazine HCl (Apresoline) 25 mg BID PO Last administered on 06/14/18 08:32; Admin Dose 25 MG; Start 06/13/18 at 09:00 Acetaminophen/ Hydrocodone Bitart ([place] (10/325)) 1 tab Q6H PRN PO MODERATE PAIN LEVEL 4-6 Last administered on 06/14/18 14:35; Admin Dose 1 TAB; Start 06/13/18 at 06:30 Lisinopril (Zestril) 20 mg BID PO Last administered on 06/14/18 08:32; Admin Dose 20 MG; Start 06/13/18 at 09:00 Pantoprazole (Protonix Tab) 40 mg DAILY@06 PO Last administered on 06/14/18at 05:06; Admin Dose 40 MG; Start 06/13/18 at 08:00 Piperacillin Sod/ Tazobactam Sod 100 ml @ 200 mls/hr Q8 IVPB Last administered on 06/14/18at 13:51; Admin Dose 200 MLS/HR; Start 06/13/18 at 14:00 Bisacodyl (Dulcolax) 10 mg BID PRN PO CONSTIPATION; Start 06/13/18 at 06:30 Acetaminophen (Tylenol Tab) 650 mg Q6H PRN PO MILD PAIN(1-3)OR ELEVATED TEMP; Start 06/13/18 at 06:30 Ondansetron HCl (Zofran Inj) 4 mg Q6H PRN IV NAUSEA AND/OR VOMITING; Start 06/13/18 at 06:30 Sodium Chloride 1,000 ml @ 20 mls/hr Q24H IV Last administered on 06/13/18at 14:05; Admin Dose 20 MLS/HR; Start 06/13/18 at 06:30 Albuterol/ Ipratropium (Duoneb) 3 ml Q6H RESP THERAPY PRN HHN SHORTNESS OF BREATH; Start 06/13/18 at 06:30 Furosemide (Lasix) 20 mg DAILY IV Last administered on 06/14/18at 08:33; Admin Dose 20 MG; Start 06/14/18 at 09:00 Azithromycin 500 mg/Sodium Chloride 250 ml @ 250 mls/hr Q24H IVPB Last administered on 06/14/18at 12:54; Admin Dose 250 MLS/HR; Start 06/14/18 at 13:00 MAGDY SERRANO Jun 14, 2018 17:38
[2018-06-15] VITALS (13 sets, daily range): BP systolic 122–143; BP diastolic 56–65; PULSE 49–59; RESP 18–22
[2018-06-15] MEDS: PANTOPRAZOLE (EC) 40 MG TAB PO SCH (06:00)
[2018-06-15] MEDS: PIPER-TAZO 3.375 GM IV (PMX) 100 ML IVPB SCH ×3 (06:08→23:29)
[2018-06-15] MEDS: SOD CHLORIDE 0.9% 1,000 ML IV SCH (06:12)
[2018-06-15] MEDS: APIXABAN 5 MG TABLET PO SCH ×2 (08:33→20:04)
[2018-06-15] MEDS: GABAPENTIN 300 MG CAP PO SCH ×2 (08:33→20:03)
[2018-06-15] MEDS: LISINOPRIL 20 MG TAB PO SCH ×2 (08:35→20:03)
[2018-06-15] MEDS: FUROSEMIDE 20 MG INJ IV SCH (08:36)
[2018-06-15] MEDS: AMLODIPINE 5 MG TAB PO SCH (08:36)
--- NOTE | 2018-06-15 10:09 | PN ---
Date/Time of Note Date/Time of Note DATE: 06/15/18 TIME: 10:09 Assessment/Plan VTE Prophylaxis Risk score (from [facility])>0 risk: 5 SCD applied (from [facility] No SCD contraindicated: low risk/ambulating Pharmacological prophylaxis: NA/contraindicated Pharm contraindication: low risk/ambulating Lines/Catheters IV Catheter Type (from [facility]): Peripheral IV Urinary Cath still in place: No Assessment/Plan Hospital Course 62-year-old female who presented with: 1. Shortness of breath likely secondary to right lower lobe pneumonia pneumonia. Underlying underlying congestive heart failure. 2. Hypertension. 3. Hyperlipidemia. 4. History of deep venous thrombosis of the leg. 5. History of chronic obstructive pulmonary disease.on Chronic home oxygen 4 L 6. History of congestive heart failure. 7 chronic c respiratory failure with hypoxia and hypercarbia plan - cw lasix -Continue with Zosyn/azithromycin -cw with lisinopril/amlodipine/hydralazine - cw with Eliquis -Repeat chest x-ray 24 hours -Stress testing today -pul consult - cw nebs - fu Pul/cardiac recs -GI/DVT prophylaxis Result Diagram: 06/13/18 1005 06/15/18 0604 Results 24hrs Laboratory Tests Test 06/14/18 18:13 06/15/18 00:46 06/15/18 06:04 Troponin I < 0.012 0.018 0.019 Sodium Level 140 Potassium Level 4.9 Chloride Level 97 Carbon Dioxide Level 35 H Anion Gap 8 Blood Urea Nitrogen 19 Creatinine 1.28 H Est Glomerular Filtrat Rate mL/min 51 L Glucose Level 82 Calcium Level 9.0 Subjective 24 Hr Interval Summary Free Text/Dictation Is much better better today From nonrebreather patient is on 6 L nasal cannula Stress test today Exam/Review of Systems Exam Vitals Vital Signs Date Temp Pulse Resp B/P (MAP) Pulse Ox O2 O2 Flow FiO2 Time Delivery Rate 06/15/18 52 08:00 06/15/18 98.4 20 138/64 90 Mask 07:51 (88) 06/15/18 10.0 07:30 06/14/18 100 08:41 Intake and Output 06/14/18 06/14/18 06/15/18 1515:00 23:00 07:00 IntakeIntake Total 250 ml 1100 ml 1040 ml BalanceBalance 250 ml 1100 ml 1040 ml Exam GENERAL: The patient is awake, alert, oriented, does not appear to in any acute distress. HEENT: Pupils are equal, round, reactive to light. NECK: Supple. No JVD. HEART: Regular rate and rhythm. LUNGS: Crackles at the right base ABDOMEN: Soft, nontender, nondistended, positive normoactive bowel sounds. EXTREMITIES: Some trace edema. NEUROLOGIC: Nonfocal. Results Results 24hrs Laboratory Tests Test 06/14/18 18:13 06/15/18 00:46 06/15/18 06:04 Troponin I < 0.012 0.018 0.019 Sodium Level 140 Potassium Level 4.9 Chloride Level 97 Carbon Dioxide Level 35 H Anion Gap 8 Blood Urea Nitrogen 19 Creatinine 1.28 H Est Glomerular Filtrat Rate mL/min 51 L Glucose Level 82 Calcium Level 9.0 Medications Medication Current Medications Amlodipine Besylate (Norvasc) 5 mg DAILY PO Last administered on 06/15/18 08:36; Admin Dose 5 MG; Start 06/13/18 at 09:00 Apixaban (Eliquis) 2.5 mg BID PO Last administered on 06/15/18 08:33; Admin Dose 2.5 MG; Start 06/13/18 at 09:00 Clonidine (Catapres) 0.2 mg DAILY PO Last administered on 06/15/18 08:35; Admin Dose 0.2 MG; Start 06/13/18 at 09:00 Gabapentin (Neurontin) 300 mg BID PO Last administered on 06/15/18 08:33; Admin Dose 300 MG; Start 06/13/18 at 09:00 Hydralazine HCl (Apresoline) 25 mg BID PO Last administered on 06/15/18 08:36; Admin Dose 25 MG; Start 06/13/18 at 09:00 Acetaminophen/ Hydrocodone Bitart ([place] (10/325)) 1 tab Q6H PRN PO MODERATE PAIN LEVEL 4-6 Last administered on 06/14/18 23:03; Admin Dose 1 TAB; Start 06/13/18 at 06:30 Lisinopril (Zestril) 20 mg BID PO Last administered on 06/14/18 20:14; Admin Dose 20 MG; Start 06/13/18 at 09:00 Pantoprazole (Protonix Tab) 40 mg DAILY@06 PO Last administered on 06/14/18at 05:06; Admin Dose 40 MG; Start 06/13/18 at 08:00 Piperacillin Sod/ Tazobactam Sod 100 ml @ 200 mls/hr Q8 IVPB Last administered on 06/15/18at 06:08; Admin Dose 200 MLS/HR; Start 06/13/18 at 14:00 Bisacodyl (Dulcolax) 10 mg BID PRN PO CONSTIPATION; Start 06/13/18 at 06:30 Acetaminophen (Tylenol Tab) 650 mg Q6H PRN PO MILD PAIN(1-3)OR ELEVATED TEMP; Start 06/13/18 at 06:30 Ondansetron HCl (Zofran Inj) 4 mg Q6H PRN IV NAUSEA AND/OR VOMITING; Start 06/13/18 at 06:30 Sodium Chloride 1,000 ml @ 20 mls/hr Q24H IV Last administered on 06/13/18at 14:05; Admin Dose 20 MLS/HR; Start 06/13/18 at 06:30 Albuterol/ Ipratropium (Duoneb) 3 ml Q6H RESP THERAPY PRN HHN SHORTNESS OF B REATH; Start 06/13/18 at 06:30 Furosemide (Lasix) 20 mg DAILY IV Last administered on 06/15/18at 08:36; Admin Dose 20 MG; Start 06/14/18 at 09:00 Azithromycin 500 mg/Sodium Chloride 250 ml @ 250 mls/hr Q24H IVPB Last administered on 06/14/18at 12:54; Admin Dose 250 MLS/HR; Start 06/14/18 at 13:00 ZOFIA GARDNER MD Jun 15, 2018 10:09
--- NOTE | 2018-06-15 10:48 | CONS ---
Assessment/Plan Assessment/Plan Assessment/Plan (Daily) Assessment and recommendations; 1. Patient admitted with hypoxemia due to right upper lobe pneumonia, clinically improving. 2. Likely chronic type II respiratory failure. 3. 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 4. Prior history of DVT, maintained on chronic anticoagulation. 5. History of hypertension. Continue current supportive care. Patient's hypoxemia has improved to the point where the patient now has been weaned off 100% nonrebreather mask to 3 L nasal cannula. We will obtain follow-up chest x-ray in 24 hours. Consultation Date/Type/Reason Admit Date/Time Jun 13, 2018 at 05:14 Initial Consult Date 06/14/18 Type of Consult Pulmonary Patient is a pleasant 62-year-old lady who came into the hospital with a 3-day history of coughing, wheezing, shortness of breath. According to her she always has dyspnea on minimal exertion. Patient also had chest pain, was transferred to [facility] and then transferred to [facility] because of insurance reasons. Patient feeling somewhat better since admission, denies any high fever, chills, body aches or myalgias. Patient is maintained on 100% nonrebreather mask, patient however did not appear to be in any distress whatsoever. Past medical history; 1. Cardiomyopathy. Patient is on home oxygen at 3 L/min most of the day. 2. Hypertension 3. Right lower extremity DVT. 4. Likely chronic type II respiratory failure. Medications; reviewed. Allergies; none. Social history; quit smoking when she was in her 30s. No stable alcohol or drug abuse. Family history; patient is , has 4 children. 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 Review of systems; denies any headache, sinus symptoms, seizures. Any visual changes. Denies any sore throat, dysphagia. Any chest pain or angina. Complains of cough with clear- yellow sputum production. Denies any abdominal pain, nausea vomiting, any edema. Denies any melena or hematochezia. Any weight change. Complains of very minimal orthopnea. Denies any hemoptysis. General exam; elderly female, awake and alert. Currently in no distress. Requesting Provider: ZOFIA GARDNER MD Date/Time of Note DATE: 06/15/18 TIME: 10:46 24 HR Interval Summary Free Text/Dictation Patient's condition is significantly improved. Denies any chest pain, coughing, wheezing, sputum production. General exam; elderly female, awake alert, currently in no distress. Exam/Review of Systems Exam Vitals Vital Signs Date Temp Pulse Resp B/P (MAP) Pulse Ox O2 O2 Flow FiO2 Time Delivery Rate 06/15/18 52 08:00 06/15/18 98.4 20 138/64 90 Mask 07:51 (88) 06/15/18 10.0 07:30 06/14/18 100 08:41 Intake and Output 06/14/18 06/14/18 06/15/18 1515:00 23:00 07:00 IntakeIntake Total 250 ml 1100 ml 1040 ml BalanceBalance 250 ml 1100 ml 1040 ml Exam H EENT exam; supple neck, no JVD. No lymphadenopathy. Midline trachea. No thyromegaly. Patient has multiple carious teeth. No neck masses. Chest exam; diminished but clear breath sounds. S1-S2 audible, no murmurs. Regular rhythm. Abdomen exam; soft, nontender. No organomegaly. Bowel sounds audible. Extremity exam; peripheral edema clubbing. Pulses 1+. BINDERY CHIEF exam; no focal deficit. Results Result Diagram: 06/13/18 1005 06/15/18 0604 Results 24hrs Laboratory Tests Test 06/14/18 18:13 06/15/18 00:46 06/15/18 06:04 Troponin I < 0.012 0.018 0.019 Sodium Level 140 Potassium Level 4.9 Chloride Level 97 Carbon Dioxide Level 35 H Anion Gap 8 Blood Urea Nitrogen 19 Creatinine 1.28 H Est Glomerular Filtrat Rate mL/min 51 L Glucose Level 82 Calcium Level 9.0 Medications Medication Current Medications Amlodipine Besylate (Norvasc) 5 mg DAILY PO Last administered on 06/15/18at 08:36; Admin Dose 5 MG; Start 06/13/18 at 09:00 Apixaban (Eliquis) 2.5 mg BID PO Last administered on 06/15/18at 08:33; Admin Dose 2.5 MG; Start 06/13/18 at 09:00 Clonidine (Catapres) 0.2 mg DAILY PO Last administered on 06/15/18at 08:35; Admin Dose 0.2 MG; Start 06/13/18 at 09:00 Gabapentin (Neurontin) 300 mg BID PO Last administered on 06/15/18 08:33; Admin Dose 300 MG; Start 06/13/18 at 09:00 Hydralazine HCl (Apresoline) 25 mg BID PO Last administered on 06/15/18 08:36; Admin Dose 25 MG; Start 06/13/18 at 09:00 Acetaminophen/ Hydrocodone Bitart ([place] (10/325)) 1 tab Q6H PRN PO MODERATE PAIN LEVEL 4-6 Last administered on 06/14/18 23:03; Admin Dose 1 TAB; Start 06/13/18 at 06:30 Lisinopril (Zestril) 20 mg BID PO Last administered on 06/14/18 20:14; Admin Dose 20 MG; Start 06/13/18 at 09:00 Pantoprazole (Protonix Tab) 40 mg DAILY@06 PO Last administered on 06/14/18 05:06; Admin Dose 40 MG; Start 06/13/18 at 08:00 Piperacillin Sod/ Tazobactam Sod 100 ml @ 200 mls/hr Q8 IVPB Last administered on 06/15/18 06:08; Admin Dose 200 MLS/HR; Start 06/13/18 at 14:00 Bisacodyl (Dulcolax) 10 mg BID PRN PO CONSTIPATION; Start 06/13/18 at 06:30 Acetaminophen (Tylenol Tab) 650 mg Q6H PRN PO MILD PAIN(1-3)OR ELEVATED TEMP; Start 06/13/18 at 06:30 Ondansetron HCl (Zofran Inj) 4 mg Q6H PRN IV NAUSEA AND/OR VOMITING; Start 06/13/18 at 06:30 Sodium Chloride 1,000 ml @ 20 mls/hr Q24H IV Last administered on 06/13/18 14:05; Admin Dose 20 MLS/HR; Start 06/13/18 at 06:30 Albuterol/ Ipratropium (Duoneb) 3 ml Q6H RESP THERAPY PRN HHN SHORTNESS OF BREATH; Start 06/13/18 at 06:30 Furosemide (Lasix) 20 mg DAILY IV Last administered on 06/15/18 08:36; Admin Dose 20 MG; Start 06/14/18 at 09:00 Azithromycin 500 mg/Sodium Chloride 250 ml @ 250 mls/hr Q24H IVPB Last administered on 06/14/18at 12:54; Admin Dose 250 MLS/HR; Start 06/14/18 at 13:00 JANIYA ARRINGTON Jun 15, 2018 10:48
[2018-06-15] MEDS ORDERED: REGADENOSON 0.4 MG/5 ML SYG ONE (12:07)
--- NOTE | 2018-06-15 12:43 | CONS ---
Assessment/Plan Assessment/Plan Hospital Course (Demo Recall) IMP: 1.chest pain 2.abnl ecg 3.H/O PE 4.HTN 5.CHF-by cxr ? systolic vs diastolic acute on chronic 6. Renal insuff Recc: -Tele -serial ecg's -Continue norvasc/hydralazine/zestril -complete anel -Continue gentle lasix diuresis and follow volume status closely -? Echo not done. Will order -lexiscan stress test today and if no ischemia then ok for d/c from cardiac standpoint Consultation Date/Type/Reason Admit Date/Time Jun 13, 2018 at 05:14 Initial Consult Date 06/14/18 Type of Consult Cardiology Reason for Consultation chest pain Requesting Provider: ZOFIA GARDNER MD Date/Time of Note DATE: 06/15/18 TIME: 12:40 Exam/Review of Systems Vital Signs Vitals Vital Signs Date Temp Pulse Resp B/P (MAP) Pulse Ox O2 O2 Flow FiO2 Time Delivery Rate 06/15/18 49 12:13 06/15/18 98.4 20 138/64 90 Mask 07:51 (88) 06/15/18 10.0 07:30 06/14/18 100 08:41 Intake and Output 06/14/18 06/14/18 06/15/18 1414:59 22:59 06:59 IntakeIntake Total 250 ml 1100 ml 1040 ml BalanceBalance 250 ml 1100 ml 1040 ml Exam Exam Review of Systems: CONSTITUTIONAL: No fevers, chills. PULMONARY: No sob CARDIOVASCULAR:intermittent chest pain/palpitations GASTROINTESTINAL: No nausea/vomiting. GENITOURINARY: No hematuria/dysuria. MUSCULOSKELETAL: No myagias/arthalgias. PSYCHIATRIC: The patient denies depression. NEUROLOGIC: No weakness Constitutional: alert, oriented Psych: no complaints ENMT: mucosa pink and moist Neck: supple, jvd (9 cm water) Respiratory: diminished breath sounds (at bases/B) Cardiovascular: regular rate and rhythm Gastrointestinal: soft, non-tender Musculoskeletal: muscle tone (normal) Extremities: edema (none) Neurological: other (No focal deficits) Labs Result Diagram: 06/13/18 1005 06/15/18 0604 Results 24hrs Laboratory Tests Test 06/14/18 18:13 06/15/18 00:46 06/15/18 06:04 Troponin I < 0.012 0.018 0.019 Sodium Level 140 Potassium Level 4.9 Chloride Level 97 Carbon Dioxide Level 35 H Anion Gap 8 Blood Urea Nitrogen 19 Creatinine 1.28 H Est Glomerular Filtrat Rate mL/min 51 L Glucose Level 82 Calcium Level 9.0 Medications Medications Current Medications Amlodipine Besylate (Norvasc) 5 mg DAILY PO Last administered on 06/15/18 08:36; Admin Dose 5 MG; Start 06/13/18 at 09:00 Apixaban (Eliquis) 2.5 mg BID PO Last administered on 06/15/18 08:33; Admin Dose 2.5 MG; Start 06/13/18 at 09:00 Clonidine (Catapres) 0.2 mg DAILY PO Last administered on 06/15/18 08:35; Admin Dose 0.2 MG; Start 06/13/18 at 09:00 Gabapentin (Neurontin) 300 mg BID PO Last administered on 06/15/18 08:33; Admin Dose 300 MG; Start 06/13/18 at 09:00 Hydralazine HCl (Apresoline) 25 mg BID PO Last administered on 06/15/18 08:36; Admin Dose 25 MG; Start 06/13/18 at 09:00 Acetaminophen/ Hydrocodone Bitart ([place] (10/325)) 1 tab Q6H PRN PO MODERATE PAIN LEVEL 4-6 Last administered on 06/14/18 23:03; Admin Dose 1 TAB; Start 06/13/18 at 06:30 Lisinopril (Zestril) 20 mg BID PO Last administered on 06/14/18 20:14; Admin Dose 20 MG; Start 06/13/18 at 09:00 Pantoprazole (Protonix Tab) 40 mg DAILY@06 PO Last administered on 06/14/18 05:06; Admin Dose 40 MG; Start 06/13/18 at 08:00 Piperacillin Sod/ Tazobactam Sod 100 ml @ 200 mls/hr Q8 IVPB Last administered on 06/15/18 06:08; Admin Dose 200 MLS/HR; Start 06/13/18 at 14:00 Bisacodyl (Dulcolax) 10 mg BID PRN PO CONSTIPATION; Start 06/13/18 at 06:30 Acetaminophen (Tylenol Tab) 650 mg Q6H PRN PO MILD PAIN(1-3)OR ELEVATED TEMP; Start 06/13/18 at 06:30 Ondansetron HCl (Zofran Inj) 4 mg Q6H PRN IV NAUSEA AND/OR VOMITING; Start 06/13/18 at 06:30 Sodium Chloride 1,000 ml @ 20 mls/hr Q24H IV Last administered on 06/13/18at 14:05; Admin Dose 20 MLS/HR; Start 06/13/18 at 06:30 Albuterol/ Ipratropium (Duoneb) 3 ml Q6H RESP THERAPY PRN HHN SHORTNESS OF BREATH; Start 06/13/18 at 06:30 Furosemide (Lasix) 20 mg DAILY IV Last administered on 06/15/18at 08:36; Admin Dose 20 MG; Start 06/14/18 at 09:00 Azithromycin 500 mg/Sodium Chloride 250 ml @ 250 mls/hr Q24H IVPB Last administered on 06/14/18at 12:54; Admin Dose 250 MLS/HR; Start 06/14/18 at 13:00 MAGDY SERRANO Jun 15, 2018 12:43
[2018-06-15] MEDS: AZITHROMYCIN 500 MG in SOD CHLORIDE 0.9% 250 ML IVPB SCH (13:52)
--- NOTE | 2018-06-15 16:20 | CARRPT ---
DATE OF PROCEDURE: 06/15/2018 TYPE OF PROCEDURE: Lexiscan Cardiolite stress test, electrocardiogram portion. REASON FOR STRESS TESTING: Chest pain, assess for ischemia. BASELINE VITAL SIGNS AND ELECTROCARDIOGRAM: Pulse rate 42, blood pressure 126/62. Electrocardiogram reveals sinus bradycardia, rate of 42 with left ventricular hypertrophy, voltage criteria and ivonne lateral deep T-wave inversions. PROCEDURE IN DETAILS: The patient underwent standard Lexiscan infusion protocol over 10 seconds foll owed by radiolabeled tracer. The patient's test was stopped at completion of protocol. Maximal achi eved blood pressure during the test was 146/65. Maximal heart rate during the test was 67. ELECTROCARDIOGRAM FINDINGS: The patient did not develop any new Lexiscan-induced ST or T-wave change s from baseline abnormalities. Occasional PVCs. SYMPTOMS: The patient had complaints of chest pain during stress testing and mild shortness of breat h, which resolved in recovery. IMPRESSION: 1. No Lexiscan-induced ST or T-wave changes from baseline abnormalities diagnostic of cardiac ischem ia. 2. No complaints of chest pain with positive shortness of breath which resolved in recovery. 3. Occasional premature ventricular contractions during stress testing. 4. Report of nuclear images to follow in separate dictation. Dictated By: MAGDY BLOCK/NTS Conf#: [id number] DID#: [id number] CC: DIMITRIOS BENSON MD; ZULLY JARQUIN MD;*[facility]*
--- NOTE | 2018-06-15 19:31 | RADRPT ---
Echocardiogram Report Patient Name: Brian IRIZARRYnt ID: [id number] : 1955 (62y 10m)Study Date: 06/15/2018 8:59:57 AM Gender: FAccession #: [id number] Tech: Ivan Juárez [facility] Ref.Physician: MAGDY RAMIREZ Height(Cm): BSA: Weight(Kg): Quality: AdequateAccount #: Procedures: Echocardiographic Report: Transthoracic echocardiogram with complete 2D, M-Mode, and doppler examination. Indications: Chest Pain. Measurements: 2D/M Mode Doppler Measurement Value Normal Range Measurement Value Normal Range LVIDd 2D 4.0 [ 3.8 - 5.2 ] cm AV Mean Dante 2.2 [ 70.0 - 90.0 ] cm/sec LVIDs 2D 2.3 [ 2.2 - 3.5 ] cm AV Mean PG 23.0 [ 2.0 - 4.0 ] mmHg LVPWd 2D 1.4 [ 0.6 - 0.9 ] cm AV VTI 71.0 cm IVSd 2D 1.4 [ 0.6 - 0.9 ] cm LVOT Mean Dante 1.6 [ 60.0 - 80.0 ] cm/sec AoR Diam 2D 2.7 [ 2.3 - 3.1 ] cm LVOT Mean PG 12.0 [ 1.0 - 3.0 ] mmHg EDV 2D 68.8 [ 46.0 - 106.0 ] ml LVOT Peak Dante 2.3 [ 70.0 - 110.0 ] cm/sec ESV 2D 19.1 [ 14.0 - 42.0 ] ml LVOT Peak PG 22.0 [ 2.0 - 6.0 ] mmHg EF 2D 72.2 [ 54.0 - 74.0 ] percent LVOT VTI 40.1 [ 20.0 - 30.0 ] cm LA Dimen 2D 4.1 [ 2.7 - 3.8 ] cm MV Peak Dante 1.5 [ 60.0 - 130.0 ] cm/sec MV Peak PG 9.0 [ 1.0 - 10.0 ] mmHg MV Mean Dante 1.0 cm/sec MV Mean PG 5.0 mmHg MV VTI 72.0 cm TR Peak Dante 2.6 [ 100.0 - 280.0 ] cm/sec TR Peak PG 26.0 mmHg Findings: Left Ventricle: Normal left ventricular systolic function. Normal left ventricular cavity size. Moderate concentric left ventricular hypertrophy. Ejection fraction is visually estimated at 60-65 %. Tissue Doppler/Mitral Doppler indices are indeterminate in this study due to the presence of mitral stenosis. Right Ventricle: Normal right ventricular systolic function. Moderate enlargement of right ventricle. Left Atrium: There is mild enlargement of left atrium. Right Atrium: There is moderate enlargement of right atrium. Mitral Valve: Moderate mitral leaflet calcification. Mild mitral annular calcification. Mild mitral valve regurgitation. Mild to moderate mitral stenosis. Mitral valve Max Velocity 1.52 m/sec. MaxPG 9.00 mmHg. MeanPG 5.00 mmHg. Aortic Valve: Aortic sclerosis without significant stenosis. Possible bicuspid aortic valve. Trace aortic valve regurgitation. Tricuspid Valve: Normal appearance of the tricuspid valve. Estimated peak PA systolic pressure 34 mmHg. There is mild tricuspid regurgitation. Pericardium: Trivial pericardial effusion. Aorta: Normal aortic root. IVC: Dilated IVC with respiratory collapse consistent with elevated right atrial pressure. Conclusions: Normal left ventricular systolic function. Normal left ventricular cavity size. Moderate concentric left ventricular hypertrophy. Ejection fraction is visually estimated at 60-65 %. Tissue Doppler/Mitral Doppler indices are indeterminate in this study due to the presence of mitral stenosis. There is mild enlargement of left atrium. There is moderate enlargement of right atrium. Moderate mitral leaflet calcification. Mild mitral annular calcification. Mild mitral valve regurgitation. Mild to moderate mitral stenosis. Mitral valve Max Velocity 1.52 m/sec. MaxPG 9.00 mmHg. MeanPG 5.00 mmHg. Aortic sclerosis without significant stenosis. Possible bicuspid aortic valve. Trace aortic valve regurgitation. Normal appearance of the tricuspid valve. Estimated peak PA systolic pressure 34 mmHg. There is mild tricuspid regurgitation. Trivial pericardial effusion. Electronically Signed By: Magdy Ramirez 2018-06-15 19:30:03 PDT
[2018-06-15] MEDS: HYDROCODONE/APAP (10/325) TAB PO PRN (19:55)
[2018-06-16] VITALS (12 sets, daily range): BP systolic 108–176; BP diastolic 51–80; PULSE 42–56; RESP 18–22
[2018-06-16] MEDS: HYDROCODONE/APAP (10/325) TAB PO PRN ×3 (05:36→21:04)
[2018-06-16] MEDS: PIPER-TAZO 3.375 GM IV (PMX) 100 ML IVPB SCH ×3 (05:37→21:06)
[2018-06-16] MEDS: PANTOPRAZOLE (EC) 40 MG TAB PO SCH (05:37)
[2018-06-16] MEDS: SOD CHLORIDE 0.9% 1,000 ML IV SCH (05:39)
[2018-06-16] MEDS: GABAPENTIN 300 MG CAP PO SCH ×2 (08:05→20:37)
[2018-06-16] MEDS: APIXABAN 5 MG TABLET PO SCH ×2 (08:08→20:37)
[2018-06-16] MEDS: AMLODIPINE 5 MG TAB PO SCH (08:09)
[2018-06-16] MEDS: LISINOPRIL 20 MG TAB PO SCH (08:10)
--- NOTE | 2018-06-16 09:47 | PN ---
[place] 06/16/18 0947: Date/Time of Note Date/Time of Note DATE: 06/16/18 TIME: 09:45 Assessment/Plan VTE [place]axis [place] [facility] [place]: 4 [place] [facility] [place] No SCD contraindicated: DVT Pharmacological prophylaxis: apixaban Lines/Catheters IV Catheter Type (from [facility]): Peripheral IV Urinary Cath still in place: No Assessment/Plan Hospital Course 1. Shortness of breath likely secondary to right lower lobe pneumonia pneumonia. Underlying congestive heart failure. 2. Hypertension, controlled. 3. Hyperlipidemia. 4. History of deep venous thrombosis of the leg. 5. History of chronic obstructive pulmonary disease.on Chronic home oxygen 4 L 6. History of congestive heart failure. 7 chronic respiratory failure with hypoxia and hypercarbia 8. Obesity 9. Normocytic hypochromic Anemia 10. Bradycardia Assessment/Plan - cw lasix -ambulate -telemetry service -monitor creatinine , same 1.27 -Continue with Zosyn/azithromycin -cw with lisinopril/amlodipine/hydralazine - cw with Eliquis -Repeat chest x-ray 24 hours -Stress testing done, left ventricle ejection fraction at stress is 53%. -pulmonary/cardiology consults - cw nebs - fu Pul/cardiac recs -GI/ proph. Protonix pO -DVT prophylaxis Eliquiz Result Diagram: 06/16/18 0739 06/16/18 0739 Results 24hrs Laboratory Tests Test 06/15/18 11:00 06/16/18 07:39 Blood Gas Specimen Source Blood arterial Arterial Blood Date Drawn 06/15/2018 2:40:32 PM Arterial Blood pH (Temp corrected) 7.366 Arterial Blood pCO2 (Temp correct) 56.1 H Arterial Blood pO2 (Temp corrected) 76.7 L Arterial Blood HCO3 31.4 H Arterial Blood Base Excess 4.7 H Arterial Blood Oxygen Saturation 94.8 L Jose Test N/A Arterial Blood Gas Puncture Site LB Arterial Blood Carboxyhemoglobin 1.2 Arterial Blood Methemoglobin 0.3 Blood Gas A-a O2 Differential 136.7 H Oxyhemoglobin Percent 93.4 Blood Gas Temperature 37.0 Blood Gas Modality NASAL CANNULA FiO2 39.0 Blood Gas Notified Whom TM Blood Gas Notified Time 06/15/2018 2:51:49 PM White Blood Count 4.9 Red Blood Count 4.95 Hemoglobin 11.8 L Hematocrit 40.4 Mean Corpuscular Volume 81.6 L Mean Corpuscular Hemoglobin 23.8 L Mean Corpuscular Hemoglobin Concent 29.2 L Red Cell Distribution Width 17.4 H Platelet Count 332 Mean Platelet Volume 11.1 H Immature Granulocytes % 0.800 H Neutrophils % 53.1 Lymphocytes % 21.4 Monocytes % 14.0 H Eosinophils % 9.7 H Basophils % 1.0 Nucleated Red Blood Cells % 0.6 H Immature Granulocytes # 0.040 H Neutrophils # 2.6 Lymphocytes # 1.0 Monocytes # 0.7 Eosinophils # 0.5 Basophils # 0.1 Nucleated Red Blood Cells # 0.0 Sodium Level 142 Potassium Level 4.1 Chloride Level 98 Carbon Dioxide Level 35 H Anion Gap 9 Blood Urea Nitrogen 21 H Creatinine 1.27 H Est Glomerular Filtrat Rate mL/min 51 L Glucose Level 111 Calcium Level 9.0 Subjective 24 Hr Interval Summary ENT: no complaints Respiratory: cough (no sputum) Cardiovascular: no complaints, chest pain; No edema, No lightheadedness, No orthopenea, No palpitations, No paroxysmal nocturnal dyspnea, No other Genitourinary: discharge; No no complaints, No bleeding, No dysuria, No flank pain, No hematuria, No o ther Exam/Review of Systems Exam Vitals Vital Signs Date Temp Pulse Resp B/P (MAP) Pulse Ox O2 O2 Flow FiO2 Time Delivery Rate 06/16/18 44 08:07 06/16/18 Nasal 6.0 07:30 Cannula 06/16/18 98.7 20 108/51 85 07:18 (70) 06/14/18 100 08:41 Intake and Output 06/15/18 06/15/18 06/16/18 1515:00 23:00 07:00 IntakeIntake Total 1770 ml 880 ml OutputOutput Total 750 ml BalanceBalance 1770 ml 130 ml Constitutional: alert, oriented Head: normocephalic Respiratory: crackles/rales, diminished breath sounds Cardiovascular: regular rate and rhythm Gastrointestinal: soft Neurological: SHOE DRESSER II-XII intact Results Result Diagram: 06/16/18 0739 06/16/18 0739 Results 24hrs Laboratory Tests Test 06/15/18 11:00 06/16/18 07:39 Blood Gas Specimen Source Blood arterial Arterial Blood Date Drawn 06/15/2018 2:40:32 PM Arterial Blood pH (Temp corrected) 7.366 Arterial Blood pCO2 (Temp correct) 56.1 H Arterial Blood pO2 (Temp corrected) 76.7 L Arterial Blood HCO3 31.4 H Arterial Blood Base Excess 4.7 H Arterial Blood Oxygen Saturation 94.8 L Jose Test N/A Arterial Blood Gas Puncture Site LB Arterial Blood Carboxyhemoglobin 1.2 Arterial Blood Methemoglobin 0.3 Blood Gas A-a O2 Differential 136.7 H Oxyhemoglobin Percent 93.4 Blood Gas Temperature 37.0 Blood Gas Modality NASAL CANNULA FiO2 39.0 Blood Gas Notified Whom TM Blood Gas Notified Time 06/15/2018 2:51:49 PM White Blood Count 4.9 Red Blood Count 4.95 Hemoglobin 11.8 L Hematocrit 40.4 Mean Corpuscular Volume 81.6 L Mean Corpuscular Hemoglobin 23.8 L Mean Corpuscular Hemoglobin Concent 29.2 L Red Cell Distribution Width 17.4 H Platelet Count 332 Mean Platelet Volume 11.1 H Immature Granulocytes % 0.800 H Neutrophils % 53.1 Lymphocytes % 21.4 Monocytes % 14.0 H Eosinophils % 9.7 H Basophils % 1.0 Nucleated Red Blood Cells % 0.6 H Immature Granulocytes # 0.040 H Neutrophils # 2.6 Lymphocytes # 1.0 Monocytes # 0.7 Eosinophils # 0.5 Basophils # 0.1 Nucleated Red Blood Cells # 0.0 Sodium Level 142 Potassium Level 4.1 Chloride Level 98 Carbon Dioxide Level 35 H Anion Gap 9 Blood Urea Nitrogen 21 H Creatinine 1.27 H Est Glomerular Filtrat Rate mL/min 51 L Glucose Level 111 Calcium Level 9.0 Medications Medication Current Medications Amlodipine Besylate (Norvasc) 5 mg DAILY PO Last administered on 06/16/18 08:09; Admin Dose 5 MG; Start 06/13/18 at 09:00 Apixaban (Eliquis) 2.5 mg BID PO Last administered on 06/16/18 08:08; Admin Dose 2.5 MG; Start 06/13/18 at 09:00 Clonidine (Catapres) 0.2 mg DAILY PO Last administered on 06/15/18 08:35; Admin Dose 0.2 MG; Start 06/13/18 at 09:00 Gabapentin (Neurontin) 300 mg BID PO Last administered on 06/16/18 08:05; Admin Dose 300 MG; Start 06/13/18 at 09:00 Hydralazine HCl (Apresoline) 25 mg BID PO Last administered on 06/16/18at 08:07; Admin Dose 25 MG; Start 06/13/18 at 09:00 Acetaminophen/ Hydrocodone Bitart ([place] (10/325)) 1 tab Q6H PRN PO MODERATE PAIN LEVEL 4-6 Last administered on 06/16/18at 05:36; Admin Dose 1 TAB; Start 06/13/18 at 06:30 Lisinopril (Zestril) 20 mg BID PO Last administered on 06/15/18at 20:03; Admin Dose 20 MG; Start 06/13/18 at 09:00 Pantoprazole (Protonix Tab) 40 mg DAILY@06 PO Last administered on 06/16/18at 05:37; Admin Dose 40 MG; Start 06/13/18 at 08:00 Piperacillin Sod/ Tazobactam Sod 100 ml @ 200 mls/hr Q8 IVPB Last administered on 06/16/18at 05:37; Admin Dose 200 MLS/HR; Start 06/13/18 at 14:00 Bisacodyl (Dulcolax) 10 mg BID PRN PO CONSTIPATION; Start 06/13/18 at 06:30 Acetaminophen (Tylenol Tab) 650 mg Q6H PRN PO MILD PAIN(1-3)OR ELEVATED TEMP; Start 06/13/18 at 06:30 Ondansetron HCl (Zofran Inj) 4 mg Q6H PRN IV NAUSEA AND/OR VOMITING; Start 06/13/18 at 06:30 Sodium Chloride 1,000 ml @ 20 mls/hr Q24H IV Last administered on 06/16/18at 05:39; Admin Dose 20 MLS/HR; Start 06/13/18 at 06:30 Albuterol/ Ipratropium (Duoneb) 3 ml Q6H RESP THERAPY PRN HHN SHORTNESS OF BREATH; Start 06/13/18 at 06:30 Azithromycin 500 mg/Sodium Chloride 250 ml @ 250 mls/hr Q24H IVPB Last administered on 06/15/18at 13:52; Admin Dose 250 MLS/HR; Start 06/14/18 at 13:00 ZOFIA GARDNER MD 06/16/18 1546: Assessment/Plan Assessment/Plan Assessment/Plan seen and examined wtih PUBLICATION MANAGER Add diflucan spuum cx+jess f/u pul, cardiac recs Result Diagram: 06/16/18 0739 06/16/18 0739 [place] Jun 16, 2018 09:47 ZOFIA GARDNER MD Jun 16, 2018 15:46
--- NOTE | 2018-06-16 10:19 | CONS ---
Assessment/Plan Assessment/Plan Assessment/Plan (Daily) Assessment and recommendations; 1. Patient admitted with right lower lobe committee acquired pneumonia with significant clinical improvement. 2. CHF due to underlying cardiomyopathy. 3. History of lower extremity DVT, maintained on chronic anticoagulate him. 4. Mild chronic renal insufficiency. 5. Chronic type II respiratory failure. Continue current supportive care. Obtain follow-up chest x-ray 24 hours. Anticipate discharge in 24 hours as well. Consultation Date/Type/Reason Admit Date/Time Jun 13, 2018 at 05:14 Initial Consult Date 06/14/18 Type of Consult Pulmonary Patient is a pleasant 62-year-old lady who came into the hospital with a 3-day history of coughing, wheezing, shortness of breath. According to her she always has dyspnea on minimal exertion. Patient also had chest pain, was transferred to [facility] and then transferred to [facility] because of insurance reasons. Patient feeling somewhat better since admission, denies any high fever, chills, body aches or myalgias. Patient is maintained on 100% nonrebreather mask, patient however did not appear to be in any distress whatsoever. Past medical history; 1. Cardiomyopathy. Patient is on home oxygen at 3 L/min most of the day. 2. Hypertension 3. Right lower extremity DVT. 4. Likely chronic type II respiratory failure. Medications; reviewed. Allergies; none. Social history; quit smoking when she was in her 30s. No stable alcohol or drug abuse. Family history; patient is , has 4 children. 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 Review of systems; denies any headache, sinus symptoms, seizures. Any visual changes. Denies any sore throat, dysphagia. Any chest pain or angina. Complains of cough with clear- yellow sputum production. Denies any abdominal pain, nausea vomiting, any edema. Denies any melena or hematochezia. Any weight change. Complains of very minimal orthopnea. Denies any hemoptysis. General exam; elderly female, awake and alert. Currently in no distress. Requesting Provider: ZOFIA GARDNER MD Date/Time of Note DATE: 06/16/18 TIME: 10:17 24 HR Interval Summary Free Text/Dictation Patient's condition is stable. Wants to go home. Denies any chest pain, coughing, wheezing, shortness of breath. General exam; elderly female, awake alert, currently in no distress. Exam/Review of Systems Exam Vitals Vital Signs Date Temp Pulse Resp B/P (MAP) Pulse Ox O2 O2 Flow FiO2 Time Delivery Rate 06/16/18 44 08:07 06/16/18 Nasal 6.0 07:30 Cannula 06/16/18 98.7 20 108/51 85 07:18 (70) 06/14/18 100 08:41 Intake and Output 06/15/18 06/15/18 06/16/18 1414:59 22:59 06:59 IntakeIntake Total 1770 ml 880 ml OutputOutput Total 750 ml BalanceBalance 1770 ml 130 ml Exam HEENT exam; supple neck, positive JVD. No lymphadenopathy. Midline trachea. No thyromegaly. Patient does have multiple carious teeth. Chest exam; diminished but clear breath sounds. S1-S2 audible, no murmurs. Regular rhythm. Abdomen exam; soft, nontender. No organomegaly. Bowel sounds audible. Extremity exam; no peripheral edema clubbing. COMPOUND FILLER exam; no focal deficit. Results Result Diagram: 06/16/18 0739 06/16/18 0739 Results 24hrs Laboratory Tests Test 06/15/18 11:00 06/16/18 07:39 Blood Gas Specimen Source Blood arterial Arterial Blood Date Drawn 06/15/2018 2:40:32 PM Arterial Blood pH (Temp corrected) 7.366 Arterial Blood pCO2 (Temp correct) 56.1 H Arterial Blood pO2 (Temp corrected) 76.7 L Arterial Blood HCO3 31.4 H Arterial Blood Base Excess 4.7 H Arterial Blood Oxygen Saturation 94.8 L Jose Test N/A Arterial Blood Gas Puncture Site LB Arterial Blood Carboxyhemoglobin 1.2 Arterial Blood Methemoglobin 0.3 Blood Gas A-a O2 Differential 136.7 H Oxyhemoglobin Percent 93.4 Blood Gas Temperature 37.0 Blood Gas Modality NASAL CANNULA FiO2 39.0 Blood Gas Notified Whom TM Blood Gas Notified Time 06/15/2018 2:51:49 PM White Blood Count 4.9 Red Blood Count 4.95 Hemoglobin 11.8 L Hematocrit 40.4 Mean Corpuscular Volume 81.6 L Mean Corpuscular Hemoglobin 23.8 L Mean Corpuscular Hemoglobin Concent 29.2 L Red Cell Distribution Width 17.4 H Platelet Count 332 Mean Platelet Volume 11.1 H Immature Granulocytes % 0.800 H Neutrophils % 53.1 Lymphocytes % 21.4 Monocytes % 14.0 H Eosinophils % 9.7 H Basophils % 1.0 Nucleated Red Blood Cells % 0.6 H Immature Granulocytes # 0.040 H Neutrophils # 2.6 Lymphocytes # 1.0 Monocytes # 0.7 Eosinophils # 0.5 Basophils # 0.1 Nucleated Red Blood Cells # 0.0 Sodium Level 142 Potassium Level 4.1 Chloride Level 98 Carbon Dioxide Level 35 H Anion Gap 9 Blood Urea Nitrogen 21 H Creatinine 1.27 H Est Glomerular Filtrat Rate mL/min 51 L Glucose Level 111 Calcium Level 9.0 Phosphorus Level 4.4 Magnesium Level 2.3 Medications Medication Current Medications Amlodipine Besylate (Norvasc) 5 mg DAILY PO Last administered on 06/16/18 08:09; Admin Dose 5 MG; Start 06/13/18 at 09:00 Apixaban (Eliquis) 2.5 mg BID PO Last administered on 06/16/18 08:08; Admin Dose 2.5 MG; Start 06/13/18 at 09:00 Clonidine (Catapres) 0.2 mg DAILY PO Last administered on 06/15/18 08:35; Admin Dose 0.2 MG; Start 06/13/18 at 09:00 Gabapentin (Neurontin) 300 mg BID PO Last administered on 06/16/18 08:05; Admin Dose 300 MG; Start 06/13/18 at 09:00 Hydralazine HCl (Apresoline) 25 mg BID PO Last administered on 06/16/18 08:07; Admin Dose 25 MG; Start 06/13/18 at 09:00 Acetaminophen/ Hydrocodone Bitart ([place] (10/325)) 1 tab Q6H PRN PO MODERATE PAIN LEVEL 4-6 Last administered on 06/16/18 05:36; Admin Dose 1 TAB; Start 06/13/18 at 06:30 Lisinopril (Zestril) 20 mg BID PO Last administered on 06/15/18 20:03; Admin Dose 20 MG; Start 06/13/18 at 09:00 Pantoprazole (Protonix Tab) 40 mg DAILY@06 PO Last administered on 06/16/18 05:37; Admin Dose 40 MG; Start 06/13/18 at 08:00 Piperacillin Sod/ Tazobactam Sod 100 ml @ 200 mls/hr Q8 IVPB Last administered on 06/16/18at 05:37; Admin Dose 200 MLS/HR; Start 06/13/18 at 14:00 Bisacodyl (Dulcolax) 10 mg BID PRN PO CONSTIPATION; Start 06/13/18 at 06:30 Acetaminophen (Tylenol Tab) 650 mg Q6H PRN PO MILD PAIN(1-3)OR ELEVATED TEMP; Start 06/13/18 at 06:30 Ondansetron HCl (Zofran Inj) 4 mg Q6H PRN IV NAUSEA AND/OR VOMITING; Start 06/13/18 at 06:30 Sodium Chloride 1,000 ml @ 20 mls/hr Q24H IV Last administered on 06/16/18at 05:39; Admin Dose 20 MLS/HR; Start 06/13/18 at 06:30 Albuterol/ Ipratropium (Duoneb) 3 ml Q6H RESP THERAPY PRN HHN SHORTNESS OF LUIS ALFREDO ATH; Start 06/13/18 at 06:30 Azithromycin 500 mg/Sodium Chloride 250 ml @ 250 mls/hr Q24H IVPB Last administered on 06/15/18at 13:52; Admin Dose 250 MLS/HR; Start 06/14/18 at 13:00 JANIYA ARRINGTON Jun 16, 2018 10:19
[2018-06-16] MEDS: AZITHROMYCIN 500 MG in SOD CHLORIDE 0.9% 250 ML IVPB SCH (14:44)
--- NOTE | 2018-06-16 15:15 | CONS ---
Assessment/Plan Assessment/Plan Hospital Course (Demo Recall) IMP: 1.chest pain-Lexiscan 06/05 with no ischemia/NL EF 2.abnl ecg 3.H/O PE 4.HTN 5.CHF-by cxr Diastolic acute on chronic. NL EF by echo 6. Renal insuff 7. Bradycardia- to 40's-50's mainly. Some intermittent high 30's when sleeping. No dizziness/syncope/stable HR Recc: -Tele -serial ecg's -Continue norvasc/hydralazine/zestril -would d/c clonidine as possible so as not to exacerbate any bradycardia -Lasix now d/c'd. Follow volume status closely and creatnine -continue abx's and f/u cx data -check TSH Consultation Date/Type/Reason Admit Date/Time Jun 13, 2018 at 05:14 Initial Consult Date 06/14/18 Type of Consult Cardiology Reason for Consultation chest pain/Bradycardia Requesting Provider: ZOFIA GARDNER MD Date/Time of Note DATE: 06/16/18 TIME: 15:07 Exam/Review of Systems Vital Signs Vitals Vital Signs Date Temp Pulse Resp B/P (MAP) Pulse Ox O2 O2 Flow FiO2 Time Delivery Rate 06/16/18 6.0 13:20 06/16/18 53 12:01 06/16/18 97.5 22 139/63 90 Nasal 11:35 (88) Cannula 06/14/18 100 08:41 Intake and Output 06/15/18 06/15/18 06/16/18 1515:00 23:00 07:00 IntakeIntake Total 1770 ml 880 ml OutputOutput Total 750 ml BalanceBalance 1770 ml 130 ml Exam Exam Review of Systems: CONSTITUTIONAL: No fevers, chills. PULMONARY: No sob CARDIOVASCULAR: No chest pain/palpitations GASTROINTESTINAL: No nausea/vomiting. GENITOURINARY: No hematuria/dysuria. MUSCULOSKELETAL: No myagias/arthalgias. PSYCHIATRIC: The patient denies depression. NEUROLOGIC: No weakness Constitutional: alert, oriented Psych: no complaints Head: normocephalic ENMT: mucosa pink and moist Neck: supple, jvd (9 cm water) Respiratory: clear to auscultation Cardiovascular: other (bradycardic, regular rhythm) Gastrointestinal: soft, non-tender Musculoskeletal: muscle tone (normal) Extremities: edema (none) Neurological: other (No focal deficits) Labs Result Diagram: 06/16/18 0739 06/16/18 0739 Results 24hrs Laboratory Tests Test 06/16/18 07:39 White Blood Count 4.9 Red Blood Count 4.95 Hemoglobin 11.8 L Hematocrit 40.4 Mean Corpuscular Volume 81.6 L Mean Corpuscular Hemoglobin 23.8 L Mean Corpuscular Hemoglobin Concent 29.2 L Red Cell Distribution Width 17.4 H Platelet Count 332 Mean Platelet Volume 11.1 H Immature Granulocytes % 0.800 H Neutrophils % 53.1 Lymphocytes % 21.4 Monocytes % 14.0 H Eosinophils % 9.7 H Basophils % 1.0 Nucleated Red Blood Cells % 0.6 H Immature Granulocytes # 0.040 H Neutrophils # 2.6 Lymphocytes # 1.0 Monocytes # 0.7 Eosinophils # 0.5 Basophils # 0.1 Nucleated Red Blood Cells # 0.0 Sodium Level 142 Potassium Level 4.1 Chloride Level 98 Carbon Dioxide Level 35 H Anion Gap 9 Blood Urea Nitrogen 21 H Creatinine 1.27 H Est Glomerular Filtrat Rate mL/min 51 L Glucose Level 111 Calcium Level 9.0 Phosphorus Level 4.4 Magnesium Level 2.3 Medications Medications Current Medications Amlodipine Besylate (Norvasc) 5 mg DAILY PO Last administered on 06/16/18 08:09; Admin Dose 5 MG; Start 06/13/18 at 09:00 Apixaban (Eliquis) 2.5 mg BID PO Last administered on 06/16/18 08:08; Admin Dose 2.5 MG; Start 06/13/18 at 09:00 Clonidine (Catapres) 0.2 mg DAILY PO Last administered on 06/15/18 08:35; Admin Dose 0.2 MG; Start 06/13/18 at 09:00 Gabapentin (Neurontin) 300 mg BID PO Last administered on 06/16/18 08:05; Admin Dose 300 MG; Start 06/13/18 at 09:00 Hydralazine HCl (Apresoline) 25 mg BID PO Last administered on 06/16/18 08:07; Admin Dose 25 MG; Start 06/13/18 at 09:00 Acetaminophen/ Hydrocodone Bitart ([place] (10/325)) 1 tab Q6H PRN PO MODERATE PAIN LEVEL 4-6 Last administered on 06/16/18 14:41; Admin Dose 1 TAB; Start 06/13/18 at 06:30 Lisinopril (Zestril) 20 mg BID PO Last administered on 06/15/18 20:03; Admin Dose 20 MG; Start 06/13/18 at 09:00 Pantoprazole (Protonix Tab) 40 mg DAILY@06 PO Last administered on 06/16/18 05:37; Admin Dose 40 MG; Start 06/13/18 at 08:00 Piperacillin Sod/ Tazobactam Sod 100 ml @ 200 mls/hr Q8 IVPB Last administered on 06/16/18 13:59; Admin Dose 200 MLS/HR; Start 06/13/18 at 14:00 Bisacodyl (Dulcolax) 10 mg BID PRN PO CONSTIPATION; Start 06/13/18 at 06:30 Acetaminophen (Tylenol Tab) 650 mg Q6H PRN PO MILD PAIN(1-3)OR ELEVATED TEMP; Start 06/13/18 at 06:30 Ondansetron HCl (Zofran Inj) 4 mg Q6H PRN IV NAUSEA AND/OR VOMITING; Start 06/13/18 at 06:30 Sodium Chloride 1,000 ml @ 20 mls/hr Q24H IV Last administered on 06/16/18at 05:39; Admin Dose 20 MLS/HR; Start 06/13/18 at 06:30 Albuterol/ Ipratropium (Duoneb) 3 ml Q6H RESP THERAPY PRN HHN SHORTNESS OF BREATH; Start 06/13/18 at 06:30 Azithromycin 500 mg/Sodium Chloride 250 ml @ 250 mls/hr Q24H IVPB Last administered on 06/16/18at 14:44; Admin Dose 250 MLS/HR; Start 06/14/18 at 13:00 MAGDY SERRANO Jun 16, 2018 15:15
[2018-06-16] MEDS: FLUCONAZOLE 200 MG TAB PO SCH (16:33)
[2018-06-16] MEDS: LISINOPRIL 10 MG TAB PO SCH (20:37)
[2018-06-17] VITALS (8 sets, daily range): BP systolic 153–158; BP diastolic 69–75; PULSE 46–58; RESP 18–20
[2018-06-17] MEDS: HYDROCODONE/APAP (10/325) TAB PO PRN (05:24)
[2018-06-17] MEDS: PIPER-TAZO 3.375 GM IV (PMX) 100 ML IVPB SCH (06:43)
[2018-06-17] MEDS: PANTOPRAZOLE (EC) 40 MG TAB PO SCH (06:43)
[2018-06-17] MEDS: SOD CHLORIDE 0.9% 1,000 ML IV SCH (06:44)
[2018-06-17] MEDS: GABAPENTIN 300 MG CAP PO SCH (08:39)
[2018-06-17] MEDS: FLUCONAZOLE 200 MG TAB PO SCH (08:40)
[2018-06-17] MEDS: APIXABAN 5 MG TABLET PO SCH (08:40)
[2018-06-17] MEDS: LISINOPRIL 10 MG TAB PO SCH (08:40)
[2018-06-17] MEDS: AMLODIPINE 5 MG TAB PO SCH (08:40)
--- NOTE | 2018-06-17 09:43 | CONS ---
Assessment/Plan Assessment/Plan Assessment/Plan (Daily) Chest x-ray was reviewed from today which is showing significant improvement in right upper lobe pneumonia. However persistent cardiomegaly and changes of mild pulmonary edema are present. Assessment recommendations; 1. Patient admitted with right upper lobe committee acquired pneumonia with si gnificant radiological improvement. 2. Underlying cardiomyopathy with persistent mild CHF. 3. History of chronic renal insufficiency. 4. History of hypertension. 5. History of right lower extremity DVT. Maintained on chronic anti-Coblation. 6. Likely chronic type II respiratory failure. Continue current supportive care. Antibiotics for another 24 hours. Obtain repeat ABG. If the patient has persistent hypercapnia then she would need to have a home ventilator for nocturnal use. Consultation Date/Type/Reason Admit Date/Time Jun 13, 2018 at 05:14 Initial Consult Date 06/14/18 Type of Consult Pulmonary Patient is a pleasant 62-year-old lady who came into the hospital with a 3-day history of coughing, wheezing, shortness of breath. According to her she always has dyspnea on minimal exertion. Patient also had chest pain, was transferred to [facility] and then transferred to [facility] because of insurance reasons. Patient feeling somewhat better since admission, denies any high fever, chills, body aches or myalgias. Patient is maintained on 100% nonrebreather mask, patient however did not appear to be in any distress whatsoever. Past medical history; 1. Cardiomyopathy. Patient is on home oxygen at 3 L/min most of the day. 2. Hypertension 3. Right lower extremity DVT. 4. Likely chronic type II respiratory failure. Medications; reviewed. Allergies; none. Social history; quit smoking when she was in her 30s. No stable alcohol or drug abuse. Family history; patient is , has 4 children. 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 Review of systems; denies any headache, sinus symptoms, seizures. Any visual changes. Denies any sore throat, dysphagia. Any chest pain or angina. Complains of cough with clear- yellow sputum production. Denies any abdominal pain, nausea vomiting, any edema. Denies any melena or hematochezia. Any weight change. Complains of very minimal orthopnea. Denies any hemoptysis. General exam; elderly female, awake and alert. Currently in no distress. Requesting Provider: ZOFIA GARDNER MD Date/Time of Note DATE: 06/17/18 TIME: 09:40 24 HR Interval Summary Free Text/Dictation Patient's condition is stable. Denies any further shortness of breath. Any coughing or wheezing. General exam; elderly female, awake and alert. Currently in no distress. Exam/Review of Systems Exam Vitals Vital Signs Date Temp Pulse Resp B/P (MAP) Pulse Ox O2 O2 Flow FiO2 Time Delivery Rate 06/17/18 49 08:49 06/17/18 97.5 20 157/72 91 Nasal 07:17 (100) Cannula 06/17/18 6.0 04:30 06/14/18 100 08:41 Intake and Output 06/16/18 06/16/18 06/17/18 1515:00 23:00 07:00 IntakeIntake Total 1770 ml 500 ml OutputOutput Total 1500 ml BalanceBalance 270 ml 500 ml Exam H EENT exam; supple neck, positive JVD. No lymphadenopathy. Midline trachea. No thyromegaly. Patient does have carious teeth. Chest exam; diminished but clear breath sounds. S1-S2 audible, no murmurs. Regular rhythm. Abdomen exam; soft, nontender. No organomegaly. Bowel sounds audible. Extremity exam; peripheral edema clubbing. DISCHARGE PLANNER exam; no focal deficit. Results Result Diagram: 06/17/18 0531 06/17/18 0531 Results 24hrs Laboratory Tests Test 06/16/18 15:39 06/17/18 05:31 Thyroid Stimulating Hormone (TSH) 2.130 Free Thyroxine 0.90 White Blood Count 4.5 L Red Blood Count 4.88 Hemoglobin 11.7 L Hematocrit 39.6 Mean Corpuscular Volume 81.1 L Mean Corpuscular Hemoglobin 24.0 L Mean Corpuscular Hemoglobin Concent 29.5 L Red Cell Distribution Width 17.5 H Platelet Count 321 Mean Platelet Volume 10.3 Immature Granulocytes % 1.100 H Neutrophils % 43.8 Lymphocytes % 27.9 Monocytes % 15.1 H Eosinophils % 11.0 H Basophils % 1.1 Nucleated Red Blood Cells % 0.4 H Immature Granulocytes # 0.050 H Neutrophils # 2.0 Lymphocytes # 1.2 Monocytes # 0.7 Eosinophils # 0.5 Basophils # 0.1 Nucleated Red Blood Cells # 0.0 Sodium Level 140 Potassium Level 4.4 Chloride Level 100 Carbon Dioxide Level 34 H Anion Gap 6 Blood Urea Nitrogen 19 Creatinine 1.26 H Est Glomerular Filtrat Rate mL/min 52 L Glucose Level 87 Calcium Level 9.1 Total Bilirubin 0.2 Direct Bilirubin 0.00 Indirect Bilirubin 0.2 Aspartate Amino Transf (AST/SGOT) 26 Alanine Aminotransferase (ALT/SGPT) 23 Alkaline Phosphatase 80 Total Protein 7.2 Albumin 3.4 Globulin 3.80 H Albumin/Globulin Ratio 0.89 Medications Medication Current Medications Amlodipine Besylate (Norvasc) 5 mg DAILY PO Last administered on 06/17/18 08:40; Admin Dose 5 MG; Start 06/13/18 at 09:00 Apixaban (Eliquis) 2.5 mg BID PO Last administered on 06/17/18 08:40; Admin Dose 2.5 MG; Start 06/13/18 at 09:00 Gabapentin (Neurontin) 300 mg BID PO Last administered on 06/17/18 08:39; Admin Dose 300 MG; Start 06/13/18 at 09:00 Hydralazine HCl (Apresoline) 25 mg BID PO Last administered on 06/17/18 08:40; Admin Dose 25 MG; Start 06/13/18 at 09:00 Acetaminophen/ Hydrocodone Bitart ([place] (10/325)) 1 tab Q6H PRN PO MODERATE PAIN LEVEL 4-6 Last administered on 06/17/18 05:24; Admin Dose 1 TAB; Start 06/13/18 at 06:30 Pantoprazole (Protonix Tab) 40 mg DAILY@06 PO Last administered on 06/17/18 06:43; Admin Dose 40 MG; Start 06/13/18 at 08:00 Piperacillin Sod/ Tazobactam Sod 100 ml @ 200 mls/hr Q8 IVPB Last administered on 06/17/18 06:43; Admin Dose 200 MLS/HR; Start 06/13/18 at 14:00 Bisacodyl (Dulcolax) 10 mg BID PRN PO CONSTIPATION; Start 06/13/18 at 06:30 Acetaminophen (Tylenol Tab) 650 mg Q6H PRN PO MILD PAIN(1-3)OR ELEVATED TEMP; Start 06/13/18 at 06:30 Ondansetron HCl (Zofran Inj) 4 mg Q6H PRN IV NAUSEA AND/OR VOMITING; Start 06/13/18 at 06:30 Sodium Chloride 1,000 ml @ 20 mls/hr Q24H IV Last administered on 06/17/18at 06:44; Admin Dose 20 MLS/HR; Start 06/13/18 at 06:30 Albuterol/ Ipratropium (Duoneb) 3 ml Q6H RESP THERAPY PRN HHN SHORTNESS OF BREATH; Start 06/13/18 at 06:30 Azithromycin 500 mg/Sodium Chloride 250 ml @ 250 mls/hr Q24H IVPB Last administered on 06/16/18at 14:44; Admin Dose 250 MLS/HR; Start 06/14/18 at 13:00 Clonidine (Catapres) 0.1 mg Q6 PRN PO PRN SBP>170; Start 06/16/18 at 15:30 Lisinopril (Zestril) 10 mg BID PO Last administered on 06/17/18 08:40; Admin Dose 10 MG; Start 06/16/18 at 21:00 Fluconazole (Diflucan) 200 mg DAILY PO Last administered on 06/17/18at 08:40; Admin Dose 200 MG; Start 06/16/18 at 16:00 JANIYA ARRINGTON Jun 17, 2018 09:43
--- NOTE | 2018-06-17 10:53 | PN ---
Date/Time of Note Date/Time of Note DATE: 06/17/18 TIME: 10:45 Assessment/Plan VTE Prophylaxis Risk score (from [facility] [place])>0 risk: 7 SCD applied (from [facility] [place]): No SCD contraindicated: other Pharmacological prophylaxis: apixaban Lines/Catheters IV Catheter Type (from [facility]): Peripheral IV Urinary Cath still in place: No Assessment/Plan Hospital Course 1. Shortness of breath likely secondary to right lower lobe pneumonia pneumonia. Underlying congestive heart failure. 2. Hypertension, controlled. 3. Hyperlipidemia. 4. History of deep venous thrombosis of the leg. 5. History of chronic obstructive pulmonary disease.on Chronic home oxygen 4 L 6. History of congestive heart failure. 7 chronic respiratory failure with hypoxia and hypercarbia 8. Obesity 9. Normocytic hypochromic Anemia 10. Bradycardia Assessment/Plan - cw lasix -ambulate in hallway -telemetry service due to bradycardia -stress test 53% -monitor creatinine , same 1.26 -Continue with Zosyn/azithromycin/fluconazole. -cw with lisinopril/amlodipine/hydralazine -Repeat chest x-ray 24 hours showed improvement -Stress testing done, left ventricle ejection fraction at stress is 53%. -pulmonary/cardiology consults - cw nebs - fu Pul/cardiac recs -GI/ proph. Protonix pO -DVT prophylaxis Eliquiz Result Diagram: 06/17/18 0531 06/17/18 0531 Results 24hrs Laboratory Tests Test 06/16/18 15:39 06/17/18 05:31 Thyroid Stimulating Hormone (TSH) 2.130 Free Thyroxine 0.90 White Blood Count 4.5 L Red Blood Count 4.88 Hemoglobin 11.7 L Hematocrit 39.6 Mean Corpuscular Volume 81.1 L Mean Corpuscular Hemoglobin 24.0 L Mean Corpuscular Hemoglobin Concent 29.5 L Red Cell Distribution Width 17.5 H Platelet Count 321 Mean Platelet Volume 10.3 Immature Granulocytes % 1.100 H Neutrophils % 43.8 Lymphocytes % 27.9 Monocytes % 15.1 H Eosinophils % 11.0 H Basophils % 1.1 Nucleated Red Blood Cells % 0.4 H Immature Granulocytes # 0.050 H Neutrophils # 2.0 Lymphocytes # 1.2 Monocytes # 0.7 Eosinophils # 0.5 Basophils # 0.1 Nucleated Red Blood Cells # 0.0 Sodium Level 140 Potassium Level 4.4 Chloride Level 100 Carbon Dioxide Level 34 H Anion Gap 6 Blood Urea Nitrogen 19 Creatinine 1.26 H Est Glomerular Filtrat Rate mL/min 52 L Glucose Level 87 Calcium Level 9.1 Total Bilirubin 0.2 Direct Bilirubin 0.00 Indirect Bilirubin 0.2 Aspartate Amino Transf (AST/SGOT) 26 Alanine Aminotransferase (ALT/SGPT) 23 Alkaline Phosphatase 80 Total Protein 7.2 Albumin 3.4 Globulin 3.80 H Albumin/Globulin Ratio 0.89 Subjective 24 Hr Interval Summary Free Text/Dictation was able to ambulate yesterday Respiratory: cough, shortness of breath; No no complaints, No pain, No pleuritic pain, No sputum, No wheezing, No other Exam/Review of Systems Exam Vitals Vital Signs Date Temp Pulse Resp B/P (MAP) Pulse Ox O2 O2 Flow FiO2 Time Delivery Rate 06/17/18 6.0 09:40 06/17/18 49 08:49 06/17/18 Nasal 08:00 Cannula 06/17/18 97.5 20 157/72 91 07:17 (100) 06/14/18 100 08:41 Intake and Output 06/16/18 06/16/18 06/17/18 1515:00 23:00 07:00 IntakeIntake Total 1770 ml 500 ml OutputOutput Total 1500 ml BalanceBalance 270 ml 500 ml Constitutional: alert, oriented Head: normocephalic Eyes: nl conjunctiva ENMT: nl external ears & nose Respiratory: congested cough, crackles/rales, diminished breath sounds Cardiovascular: regular rate and rhythm Gastrointestinal: soft Extremities: pitting pedal edema; No normal pulses, No calf tenderness, No cyanosis, No clubbing, No edema, No palpable cord, No tenderness, No other Results Results 24hrs Laboratory Tests Test 06/16/18 15:39 06/17/18 05:31 Thyroid Stimulating Hormone (TSH) 2.130 Free Thyroxine 0.90 White Blood Count 4.5 L Red Blood Count 4.88 Hemoglobin 11.7 L Hematocrit 39.6 Mean Corpuscular Volume 81.1 L Mean Corpuscular Hemoglobin 24.0 L Mean Corpuscular Hemoglobin Concent 29.5 L Red Cell Distribution Width 17.5 H Platelet Count 321 Mean Platelet Volume 10.3 Immature Granulocytes % 1.100 H Neutrophils % 43.8 Lymphocytes % 27.9 Monocytes % 15.1 H Eosinophils % 11.0 H Basophils % 1.1 Nucleated Red Blood Cells % 0.4 H Immature Granulocytes # 0.050 H Neutrophils # 2.0 Lymphocytes # 1.2 Monocytes # 0.7 Eosinophils # 0.5 Basophils # 0.1 Nucleated Red Blood Cells # 0.0 Sodium Level 140 Potassium Level 4.4 Chloride Level 100 Carbon Dioxide Level 34 H Anion Gap 6 Blood Urea Nitrogen 19 Creatinine 1.26 H Est Glomerular Filtrat Rate mL/min 52 L Glucose Level 87 Calcium Level 9.1 Total Bilirubin 0.2 Direct Bilirubin 0.00 Indirect Bilirubin 0.2 Aspartate Amino Transf (AST/SGOT) 26 Alanine Aminotransferase (ALT/SGPT) 23 Alkaline Phosphatase 80 Total Protein 7.2 Albumin 3.4 Globulin 3.80 H Albumin/Globulin Ratio 0.89 Medications Medication Current Medications Amlodipine Besylate (Norvasc) 5 mg DAILY PO Last administered on 06/17/18 08:40; Admin Dose 5 MG; Start 06/13/18 at 09:00 Apixaban (Eliquis) 2.5 mg BID PO Last administered on 06/17/18 08:40; Admin Dose 2.5 MG; Start 06/13/18 at 09:00 Gabapentin (Neurontin) 300 mg BID PO Last administered on 06/17/18 08:39; Admin Dose 300 MG; Start 06/13/18 at 09:00 Hydralazine HCl (Apresoline) 25 mg BID PO Last administered on 06/17/18 08:40; Admin Dose 25 MG; Start 06/13/18 at 09:00 Acetaminophen/ Hydrocodone Bitart ([place] (10/325)) 1 tab Q6H PRN PO MODERATE PAIN LEVEL 4-6 Last administered on 06/17/18 05:24; Admin Dose 1 TAB; Start 06/13/18 at 06:30 Pantoprazole (Protonix Tab) 40 mg DAILY@06 PO Last administered on 06/17/18 06:43; Admin Dose 40 MG; Start 06/13/18 at 08:00 Piperacillin Sod/ Tazobactam Sod 100 ml @ 200 mls/hr Q8 IVPB Last administered on 06/17/18 06:43; Admin Dose 200 MLS/HR; Start 06/13/18 at 14:00 Bisacodyl (Dulcolax) 10 mg BID PRN PO CONSTIPATION; Start 06/13/18 at 06:30 Acetaminophen (Tylenol Tab) 650 mg Q6H PRN PO MILD PAIN(1-3)OR ELEVATED TEMP; Start 06/13/18 at 06:30 Ondansetron HCl (Zofran Inj) 4 mg Q6H PRN IV NAUSEA AND/OR VOMITING; Start at 06:30 Sodium Chloride 1,000 ml @ 20 mls/hr Q24H IV Last administered on 06/17/18at 06:44; Admin Dose 20 MLS/HR; Start 06/13/18 at 06:30 Albuterol/ Ipratropium (Duoneb) 3 ml Q6H RESP THERAPY PRN HHN SHORTNESS OF BREATH; Start 06/13/18 at 06:30 Azithromycin 500 mg/Sodium Chloride 250 ml @ 250 mls/hr Q24H IVPB Last administered on 06/16/18at 14:44; Admin Dose 250 MLS/HR; Start 06/14/18 at 13:00 Clonidine (Catapres) 0.1 mg Q6 PRN PO PRN SBP>170; Start 06/16/18 at 15:30 Lisinopril (Zestril) 10 mg BID PO Last administered on 06/17/18 08:40; Admin Dose 10 MG; Start 06/16/18 at 21:00 Fluconazole (Diflucan) 200 mg DAILY PO Last administered on 06/17/18 08:40; Admin Dose 200 MG; Start 06/16/18 at 16:00 SPRIGN BLACK Jun 17, 2018 10:53
--- NOTE | 2018-06-17 12:23 | CONS ---
Consult Date/Type/Reason Admit Date/Time Jun 13, 2018 at 05:14 Initial Consult Date 06/14/18 Requesting Provider: ZOFIA GARDNER MD Date/Time of Note DATE: 06/17/18 TIME: 12:21 Subjective NO acute events - pt stable - HR better - no CP noted. ROS: No fever, no chills, no nausea, no vomiting, no diarrhea/constipation No recent weight changes No chest pain, no PND, no orthopnea - mild SOB No dizziness, blurred vision No thirst, no heat or cold intolerance Objective Vitals Vital Signs Date Temp Pulse Resp B/P (MAP) Pulse Ox O2 O2 Flow FiO2 Time Delivery Rate 06/17/18 46 11:50 06/17/18 97.2 20 158/75 92 Nasal 11:10 (102) Cannula 06/17/18 6.0 09:40 06/14/18 100 08:41 Intake and Output 06/16/18 06/16/18 06/17/18 1515:00 23:00 07:00 IntakeIntake Total 1770 ml 500 ml OutputOutput Total 1500 ml BalanceBalance 270 ml 500 ml Exam General: WN/WD/NAD, AOx 2-3 - tired HEENT: Unicetric/atraumatic/EOMI (follows commands) NECK: JVD elevated, no thyromegaly Lymph: no lymphadenopathy HEART: regular with no S3, II/ systolic murmur at apex, PMI L LUNGS: Coarse sounds ABD: soft, NT, ND, +BS : Intact Neuro: non focal SKIN: chronic changes EXT: trace edema Results/Medications Result Diagram: 06/17/1831 06/17/1831 Results 24 hrs Laboratory Tests Test 06/16/18 15:39 06/17/18 05:31 06/17/18 09:47 Thyroid Stimulating 2.130 Hormone (TSH) Free Thyroxine 0.90 White Blood Count 4.5 L Red Blood Count 4.88 Hemoglobin 11.7 L Hematocrit 39.6 Mean Corpuscular Volume 81.1 L Mean Corpuscular Hemoglobin 24.0 L Mean Corpuscular 29.5 L Hemoglobin Concent Red Cell Distribution Width 17.5 H Platelet Count 321 Mean Platelet Volume 10.3 Immature Granulocytes % 1.100 H Neutrophils % 43.8 Lymphocytes % 27.9 Monocytes % 15.1 H Eosinophils % 11.0 H Basophils % 1.1 Nucleated Red Blood Cells % 0.4 H Immature Granulocytes # 0.050 H Neutrophils # 2.0 Lymphocytes # 1.2 Monocytes # 0.7 Eosinophils # 0.5 Basophils # 0.1 Nucleated Red Blood Cells # 0.0 Sodium Level 140 Potassium Level 4.4 Chloride Level 100 Carbon Dioxide Level 34 H Anion Gap 6 Blood Urea Nitrogen 19 Creatinine 1.26 H Est Glomerular Filtrat 52 L Rate mL/min Glucose Level 87 Calcium Level 9.1 Total Bilirubin 0.2 Direct Bilirubin 0.00 Indirect Bilirubin 0.2 Aspartate Amino 26 Transf (AST/SGOT) Alanine 23 Aminotransferase (ALT/SGPT) Alkaline Phosphatase 80 Total Protein 7.2 Albumin 3.4 Globulin 3.80 H Albumin/Globulin Ratio 0.89 Blood Gas Specimen Source Blood arterial Arterial Blood Date Drawn 06/17/2018 10:55:57 AM Arterial Blood pH 7.316 L (Temp corrected) Arterial Blood pCO2 69.3 H (Temp correct) Arterial Blood pO2 74.3 L (Temp corrected) Arterial Blood HCO3 34.6 H Arterial Blood Base Excess 6.2 H Arterial Blood 93.7 L Oxygen Saturation Jose Test ACCEPTAB Arterial Blood Gas Right Radial Puncture Site Arterial 0.8 Blood Carboxyhemoglobin Arterial Blood 0.3 Methemoglobin Blood Gas A-a O2 123.9 H Differential Oxyhemoglobin Percent 92.7 L Blood Gas Temperature 37.0 Blood Gas Modality NASAL CANNULA FiO2 39.0 Blood Gas Notified Whom AB Blood Gas Notified Time 06/17/2018 11:03:11 AM Home Meds Active Scripts Apixaban* (Eliquis*) 2.5 Mg Tablet, 2.5 MG PO BID for 30 Days, TAB Prov:SPRIGN BLACK 07/22/17 Hydralazine Hcl* (Hydralazine Hcl*) 25 Mg Tab, 25 MG PO Q8 for 30 Days, TAB Prov:SPRING BLACK 07/22/17 Reported Medications Furosemide* (Lasix*) 40 Mg Tablet, 40 MG PO DAILY, TAB 02/08/14 Lisinopril* (Lisinopril*) 20 Mg Tablet, 20 MG PO BID, TAB 02/08/14 Ergocalciferol* (Drisdol* (Vitamin D2)) 50,000 Unit Capsule, [address]231 UNIT PO Q7D, CAP 02/08/14 Diclofenac Sodium* (Voltaren* Gel) 1% -100 Gm Gel, 1 APPLIC TOP TID PRN for PAIN, TUB 02/08/14 Hydrocodone Bit-Acetaminophen* ([place]*) 7.5-325 Tablet, 1 TAB PO Q12 PRN for PAIN, TAB 02/08/14 Hydralazine Hcl* (Hydralazine Hcl*) 25 Mg Tab, 25 MG PO BID, TAB 02/08/14 Clonidine Hcl* (Clonidine Hcl*) 0.1 Mg Tab, 0.1 MG PO BID, TAB 02/08/14 Isosorbide Mononitrate* (Isosorbide Mononitrate*) 60 Mg Tab.er.24h, 30 MG PO DAILY, TAB 02/08/14 Metolazone* (Metolazone*) 2.5 Mg Tablet, 2.5 MG PO EVERY THIRD DAY PRN for NEEDED, TAB 02/08/14 Amlodipine Besylate* (Amlodipine Besylate*) 10 Mg Tablet, 10 MG PO DAILY, TAB 02/08/14 Gabapentin* (Gabapentin*) 300 Mg Capsule, 300 MG PO BID, CAP 02/08/14 Medications Current Medications Amlodipine Besylate (Norvasc) 5 mg DAILY PO Last administered on 06/17/18 08:40; Admin Dose 5 MG; Start 06/13/18 at 09:00 Apixaban (Eliquis) 2.5 mg BID PO Last administered on 06/17/18 08:40; Admin Dose 2.5 MG; Start 06/13/18 at 09:00 Gabapentin (Neurontin) 300 mg BID PO Last administered on 06/17/18 08:39; Admin Dose 300 MG; Start 06/13/18 at 09:00 Hydralazine HCl (Apresoline) 25 mg BID PO Last administered on 06/17/18 08:40; Admin Dose 25 MG; Start 06/13/18 at 09:00 Acetaminophen/ Hydrocodone Bitart ([place] (10/325)) 1 tab Q6H PRN PO MODERATE PAIN LEVEL 4-6 Last administered on 06/17/18 05:24; Admin Dose 1 TAB; Start 06/13/18 at 06:30 Pantoprazole (Protonix Tab) 40 mg DAILY@06 PO Last administered on 06/17/18 06:43; Admin Dose 40 MG; Start 06/13/18 at 08:00 Piperacillin Sod/ Tazobactam Sod 100 ml @ 200 mls/hr Q8 IVPB Last administered on 06/17/18at 06:43; Admin Dose 200 MLS/HR; Start 06/13/18 at 14:00 Bisacodyl (Dulcolax) 10 mg BID PRN PO CONSTIPATION; Start 06/13/18 at 06:30 Acetaminophen (Tylenol Tab) 650 mg Q6H PRN PO MILD PAIN(1-3)OR ELEVATED TEMP; Start 06/13/18 at 06:30 Ondansetron HCl (Zofran Inj) 4 mg Q6H PRN IV NAUSEA AND/OR VOMITING; Start 06/13/18 at 06:30 Sodium Chloride 1,000 ml @ 20 mls/hr Q24H IV Last administered on 06/17/18at 06:44; Admin Dose 20 MLS/HR; Start 06/13/18 at 06:30 Albuterol/ Ipratropium (Duoneb) 3 ml Q6H RESP THERAPY PRN HHN SHORTNESS OF BREATH; Start 06/13/18 at 06:30 Azithromycin 500 mg/Sodium Chloride 250 ml @ 250 mls/hr Q24H IVPB Last administered on 06/16/18at 14:44; Admin Dose 250 MLS/HR; Start 06/14/18 at 13:00 Clonidine (Catapres) 0.1 mg Q6 PRN PO PRN SBP>170; Start 06/16/18 at 15:30 Lisinopril (Zestril) 10 mg BID PO Last administered on 06/17/18at 08:40; Admin Dose 10 MG; Start 06/16/18 at 21:00 Fluconazole (Diflucan) 200 mg DAILY PO Last administered on 06/17/18 08:40; Admin Dose 200 MG; Start 06/16/18 at 16:00 Assessment/Plan Hospital Course (Demo Recall) 1.chest pain-Lexiscan 06/05 with no ischemia/NL EF - con't to follow clinically 2.abnl ecg - no Cp noted - r/o Mi. 3.H/O PE - on therapy now 4.HTN - well Rx on meds 5.CHF-by cxr Diastolic acute on chronic. NL EF by echo - better fluid status now 6. Renal insuff - Cr 04/15 - good output 7. Bradycardia- to 40's-50's mainly. Some intermittent high 30's when sleeping. No dizziness/syncope/stable HR - no plan for pacer now. CECILIA VAZ MD Jun 17, 2018 12:23
--- NOTE | 2018-06-18 16:52 | QN ---
Documentation Comment [id number] DIMITRIOS BENSON MD Jun 18, 2018 16:52
--- NOTE | 2018-06-18 18:02 | DS ---
DATE OF ADMISSION: 06/13/2018 DATE OF DISCHARGE: 06/17/2018 HOSPITAL COURSE: The patient against medical advice, was admitted with shortness of breath and lung infiltrate. The patient was seen by Dr. Ramirez and Dr. Solano in consultation. The patient did not want to stay more as she has some personal things to attend to and decided to leave against medical a dvice. The patient was given oxygen, bronchodilator and antibiotics. DISCHARGE DIAGNOSES: Include: 1. Dyslipidemia. 2. History of deep venous thrombosis. 3. History of chronic obstructive pulmonary disease. 4. History of congestive heart failure. 5. History of chronic oxygen use. 6. Obesity. 7. Bradycardia. 8. Anemia. 9. Electrolyte imbalance. 10. Chronic kidney disease. 11. The patient left the hospital against medical advice. Dictated By: DIMITRIOS BENSON MD BS/NTS Conf#: [id number] DID#: [id number] CC: LETI ENGLAND MD;*EndCC*
== END 2018-06-17 14:56 | disposition left against medical advice (07) | DRG 193 ==
LOC: TEL 05:14
PROVIDERS: ADMIT Internal Medicine Nephrology; ATTEND Internal Medicine Nephrology
PROC: 4A133R1 Monitoring of Arterial Saturation, Peripheral, Percutaneous Approach (ICD-10-PCS; principal; 2018-06-14)
DX: J18.9 Pneumonia, unspecified organism (principal); I50.33 Acute on chronic diastolic (congestive) heart failure; D68.69 Other thrombophilia; I42.9 Cardiomyopathy, unspecified; J96.12 Chronic respiratory failure with hypercapnia; J96.11 Chronic respiratory failure with hypoxia; I13.0 Hypertensive heart and chronic kidney disease with heart failure and stage 1 through stage 4 chronic kidney disease, or unspecified chronic kidney disease; E66.9 Obesity, unspecified; Z68.31 Body mass index [BMI] 31.0-31.9, adult; R00.1 Bradycardia, unspecified; N18.9 Chronic kidney disease, unspecified; J44.9 Chronic obstructive pulmonary disease, unspecified; E78.5 Hyperlipidemia, unspecified; Z86.718 Personal history of other venous thrombosis and embolism; Z99.81 Dependence on supplemental oxygen; Z79.01 Long term (current) use of anticoagulants; Z79.82 Long term (current) use of aspirin; Z91.19 Patient's noncompliance with other medical treatment and regimen; Z87.891 Personal history of nicotine dependence; Z86.711 Personal history of pulmonary embolism
CPT/HCPCS: 36600; 71045; 78452; 78582; 80048; 80053; 82803; 83735; 84100; 84439; 84443; 84484; 85025; 87070; 93017; 93306; A9500; A9505; A9540; J0456; J1120; J1940; J2543; J2785; J7030; J7050